=== PATIENT | female | born 1955 | race Caucasian/White ===

== ENCOUNTER 2023-02-28 17:32 | Inpatient (IN) ==
--- NOTE | 2023-02-28 18:04 | Emergency Department Note ---
Impression & Plan Pneumonia due to 2019 novel coronavirus, Acute hypoxemic respiratory failure, Acute dehydration ED Provider Note NAME: CHRISTIAN GARZA AGE: 67 SEX: F : 1955 ARRIVES VIA: Ambulance INFORMANT: Patient, ED PROVIDER(S): Gurdeep Lima MD CHIEF COMPLAINT: Shortness of breath MEDICAL DECISION MAKING: Patient presents due to concern for shortness of breath in setting of recent COVID diagnosis. Sepsis protocols were initiated patient was placed on BiPAP IV fluids ordered in addition to breathing treatment and steroids dexamethasone IV 6 mg. Blood work shows a white count of 13 with a hemoglobin of 10. Platelet count is unremarkable. Patient's kidney function is unremarkable but with prerenal azotemia. The patient did receive IV fluids. Patient was tolerating the BiPAP well. Hyponatremia at 135. Patient's other electrolytes unremarkable. Pro-Damion is not elevated will defer antibiotic treatment at this time. Ketones significant for dehydration. COVID-positive the rest of bio fire negative. I did speak with the on-call hospital service Dr. Win and the patient was admitted to the medicine service. Critical Care: I have personally spent 35 minutes of critical care time in direct management of this patient. This includes bedside care, interpretation of diagnostic studies, and testing, discussion with consultants, patient, and family members, and other require inpatient management activities. This 35 minutes is in excess of all separately billable procedures. Discussion w/ other healthcare providers: Dr. Win inpatient medicine service Prior /Outside records reviewed: None Differential diagnosis: Reactive airway disease, pneumonia, pneumothorax, COPD, CHF, ACS, pulmonary embolism, musculoskeletal, GERD as well as other pathologies were considered. Diagnostics, as interpreted by me: ECG: None Cardiac monitoring: An order was placed for continuous cardiac monitoring. The monitor shows a rate of 95 with sinus rhythm. Patient was placed on pulse oximetry Medical decision rules: None Imaging studies: I informally interpreted the patient's chest x-ray which does show multifocal pneumonia with formal report to follow. HPI: Patient presents due to concern for increasing work of breathing associated shortness of breath. The patient states that she tested positive for COVID and had symptoms beginning on the 18. The patient is visiting from [place] as her mother is currently at [facility], [place]. Patient denies any chest pains. The patient has had cough but it is nonproductive. No smoking history. The patient denies any leg swelling or calf pain. No abdominal pain nausea vomiting. PAST MEDICAL HISTORY: See Below PAST SURGICAL HISTORY: History of partial colectomy SOCIAL HISTORY: Retired HOME MEDICATIONS: See Below ALLERGIES: See Below VITALS: See Below PHYSICAL EXAMINATION: GENERAL: Ill in appearance nasal cannula mask in place EYE EXAM: Normal conjunctiva. PERRL, no anisocoria and EOM's grossly intact w/o pain. OROPHARYNX: Moist mucus membranes, grossly normal dentition. NECK: Supple, no nuchal rigidity, no adenopathy, non-tender. No signs of meningismus. FROM of the neck with good chin to chest and neck extension. No stridor. LUNGS: Coarse sounds throughout. Normal chest wall mechanics. HEART: NSR, no MRG. ABDOMEN: Abdomen soft, non-tender, no masses, no rebound or guarding. BACK: No CVA TTP. SKIN: No rashes and no bruising. UPPER EXTREMITIES: Upper extremities are grossly normal. LOWER EXTREMITIES: Grossly normal, no edema. NEURO EXAM: A&O x3, cranial nerves II-XII grossly intact, normal speech, moves all 4 extremities. Past Med/Surg History Medical History Anxiety Asthma Scoliosis Osteoporosis Social History Smoking Status: Never smoker Preferred Language: Italian Feels Safe at Home: Yes Allergies Allergies Allergy/AdvReac Type Severity Reaction Status Date / Time diazepam [From Valium] AdvReac Intermediate Dizziness Verified 02/28/23 19:48 hydrocodone [From Vicodin] AdvReac Intermediate Dizziness Verified 02/28/23 19:48 soy AdvReac Intermediate Gastrointestinal Verified 02/28/23 19:48 Upset Tetracyclines AdvReac Intermediate Dizziness Verified 02/28/23 19:48 Home Meds Home Medications Medication Instructions Recorded Confirmed alendronate 70 mg tablet 70 mg PO WK 02/28/23 02/28/23 ciclesonide 160 mcg/actuation 1 inh inhalation BID 02/28/23 02/28/23 aerosol inhaler (Alvesco) fluoxetine 40 mg capsule 40 mg PO BID 02/28/23 02/28/23 lorazepam 0.5 mg tablet 0.5 mg PO DAILY 02/28/23 02/28/23 nirmatrelvir 300 mg (150 mg 1 ea PO DIRECTED 02/28/23 02/28/23 x2)-ritonavir 100 mg tablet,dose pack (Paxlovid) risperidone 2 mg tablet 2 mg PO HS 02/28/23 02/28/23 Results & Data (ED) Vital Signs Vital Signs - 24 hr 02/28/23 17:42 02/28/23 17:42 02/28/23 17:42 Temperature 37.2 C Temperature Source Oral Pulse Rate Pulse Rate [Right Finger] 103 H Pulse Rhythm Pulse Rhythm [Right Finger] Regular Pulse Strength Pulse Strength [Right Finger] Normal Respiratory Rate 29 H Respiratory Effort / Characteristics SOB on Exertion SOB on Exertion Respiratory Depth Shallow Shallow Respiratory Pattern Tachypnea Tachypnea Blood Pressure Blood Pressure [Right Arm] 165/90 H Blood Pressure Mean Blood Pressure Mean [Right Arm] 115 Blood Pressure Position Blood Pressure Position [Right Arm] Semi-fowlers Pulse Oximetry 94 Oxygen Delivery Method Nasal Cannula Nasal Cannula Nasal Cannula Oxygen Flow Rate 2 2 2 Fraction of Inspired Oxygen Sepsis Recent Fever Within 48 Hours Sepsis New/Unexplained Change in Mental Status Sepsis Action Taken by Nursing 02/28/23 17:43 02/28/23 17:47 02/28/23 18:34 Temperature 37.2 C Temperature Source Oral Pulse Rate 99 H 103 H 90 Pulse Rate [Right Finger] Pulse Rhythm Regular Regular Pulse Rhythm [Right Finger] Pulse Strength Normal Pulse Strength [Right Finger] Respiratory Rate 29 H 21 Respiratory Effort / Characteristics SOB on Exertion Respiratory Depth Normal Respiratory Pattern Tachypnea Blood Pressure 165/90 H Blood Pressure [Right Arm] Blood Pressure Mean 115 Blood Pressure Mean [Right Arm] Blood Pressure Position Semi-fowlers Blood Pressure Position [Right Arm] Pulse Oximetry 95 92 Oxygen Delivery Method Nasal Cannula Nasal Cannula Oxygen Flow Rate 2 2 Fraction of Inspired Oxygen Sepsis Recent Fever Within 48 Hours Yes Sepsis New/Unexplained Change in Mental Status N/A Sepsis Action Taken by Nursing No Action Required 02/28/23 18:34 02/28/23 18:38 02/28/23 19:42 Temperature Temperature Source Pulse Rate 93 H Pulse Rate [Right Finger] 93 H 91 H Pulse Rhythm Pulse Rhythm [Right Finger] Regular Pulse Strength Pulse Strength [Right Finger] Normal Respiratory Rate 32 H 32 H 17 Respiratory Effort / Characteristics Spontaneous Spontaneous Non-Labored Spontaneous Respiratory Depth Normal Normal Respiratory Pattern Tachypnea Regular Blood Pressure Blood Pressure [Right Arm] 168/90 H Blood Pressure Mean Blood Pressure Mean [Right Arm] 116 Blood Pressure Position Blood Pressure Position [Right Arm] Pulse Oximetry 95 95 96 Oxygen Delivery Method BiPAP BiPAP Oxygen Flow Rate Fraction of Inspired Oxygen 25 25 Sepsis Recent Fever Within 48 Hours Sepsis New/Unexplained Change in Mental Status Sepsis Action Taken by Nursing 02/28/23 20:56 Temperature Temperature Source Pulse Rate Pulse Rate [Right Finger] 97 H Pulse Rhythm Pulse Rhythm [Right Finger] Regular Pulse Strength Pulse Strength [Right Finger] Normal Respiratory Rate 19 Respiratory Effort / Characteristics SOB on Exertion Respiratory Depth Normal Respiratory Pattern Regular Blood Pressure Blood Pressure [Right Arm] 156/89 H Blood Pressure Mean Blood Pressure Mean [Right Arm] 111 Blood Pressure Position Blood Pressure Position [Right Arm] Pulse Oximetry 92 Oxygen Delivery Method BiPAP Oxygen Flow Rate Fraction of Inspired Oxygen Sepsis Recent Fever Within 48 Hours Sepsis New/Unexplained Change in Mental Status Sepsis Action Taken by [facility] Medications Current Medication List: was personally reviewed by me Laboratory Data Attestation: I reviewed the patient's lab results. 02/28/23 18:20 02/28/23 18:20 Lab Results 02/28/23 02/28/23 Range/Units 18:20 18:30 WBC 13.31 H (4.8-10.8) K/ul RBC 3.80 L (4.20-5.40) M/uL Hgb 10.0 L (12.0-16.0) g/dl Hct 30.3 L (37.0-47.0) % MCV 79.7 L (80.0-100.0) fL MCH 26.3 (25.0-34.0) pg MCHC 33.0 (32.0-36.0) g/dL RDW Std Deviation 42.2 (36.4-46.3) fL RDW Coeff of Rogelio 14.5 (11.5-14.5) % Plt Count 352 (130-400) K/uL MPV 9.2 L (9.4-12.4) fL Immature Gran % (Auto) 1.4 % Neut % (Auto) 81.5 % Lymph % (Auto) 8.4 % [place] % (Auto) 8.2 % Eos % (Auto) 0.3 % Baso % (Auto) 0.2 % Neut # (Auto) 10.85 H (1.40-6.50) K/uL Lymph # (Auto) 1.12 L (1.20-3.40) K/uL [place] # (Auto) 1.09 H (0.11-0.59) K/uL Eos # (Auto) 0.04 (0.00-0.50) K/uL Baso # (Auto) 0.03 (0.00-0.20) K/uL Immature Gran # (Auto) 0.18 (0.01-0.20) K/uL Sodium 135 L (136-145) mmol/L Potassium 3.8 (3.5-5.1) mmol/L Chloride 99 (98-107) mmol/L Carbon Dioxide 27 (21-32) mmol/L Anion Gap 9 (3-11) BUN 18 (6-23) mg/dl Creatinine 0.64 (0.6-1.2) mg/dl Est Cr Clr Drug Dosing 68.5 ml/min Est GFR ( Amer) 107.8 ml/min Est GFR (Non-Af Amer) 93.0 ml/min BUN/Creatinine Ratio 28.1 H (10-20) Glucose 106 H (70-99(Fasting)) mg/dl Lactate 1.4 (0.4-2.0) mmol/L Calcium 8.7 (8.6-10.3) mg/dl Magnesium 2.0 (1.7-2.4) mg/dl Total Bilirubin 0.5 (0.2-1.0) mg/dl AST 33 (13-39) U/L ALT 38 (7-52) U/L Alkaline Phosphatase 53 (34-104) U/L Troponin I High Sens 7.8 (0-14) pg/ml Total Protein 7.1 (6.0-8.3) gm/dl Albumin 3.4 (3.4-5.0) gm/dl Globulin 3.7 (2.5-4.0) gm/dl Albumin/Globulin Ratio 0.9 (0.9-2) Procalcitonin 0.21 (0-0.5) ng/ml Adenovirus (PCR) Not Detected (NotDetected) B. pertussis DNA (PCR) Not Detected (NotDetected) B.parapertussis DNA PCR Not Detected (NotDetected) C. pneumoniae DNA (PCR) Not Detected (NotDetected) Coronavirus OC43 (PCR) Not Detected (NotDetected) Coronavirus HKU1 (PCR) Not Detected (NotDetected) Coronavirus 229E (PCR) Not Detected (NotDetected) SARS-CoV-2 (PCR) DETECTED A* (NotDetected) Coronavirus NL63 (PCR) Not Detected (NotDetected) Human Metapneumovir PCR Not Detected (NotDetected) Influenza Type A (PCR) Not Detected (NotDetected) Influenza Type B (PCR) Not Detected (NotDetected) M. pneumoniae (PCR) Not Detected (NotDetected) Parainfluenza 1 (PCR) Not Detected (NotDetected) Parainfluenza 2 (PCR) Not Detected (NotDetected) Parainfluenza 3 (PCR) Not Detected (NotDetected) Parainfluenza 4 (PCR) Not Detected (NotDetected) RSV (PCR) Not Detected (NotDetected) Entero/Rhino (PCR) Not Detected (NotDetected) Administered Medications Azithromycin 500 mg/ Dextrose 255 mls @ 127.5 mls/hr IV Q24H ALFREDO Stop: 03/07/23 22:59 Last Admin: 02/28/23 23:48 Dose: 127.5 mls/hr Documented By: DLLeela Discontinued Medications Albuterol (Albut/Ipratrop 3mg/0.5mg Neb 3 Ml Vial) 6 ml NEB NOW STA; Protocol Stop: 02/28/23 18:19 Last Admin: 02/28/23 18:34 Dose: 6 ml Documented By: NUNU Dexamethasone (Dexamethasone Sod Inj 4 Mg/Ml Vial) 6 mg IV NOW STA Stop: 02/28/23 18:19 Last Admin: 02/28/23 18:51 Dose: 6 mg Documented By: ADELSO Sodium Chloride (Nss) 500 mls @ 999 mls/hr IV .Q31M ALFREDO Stop: 02/28/23 19:00 Last Infusion: 02/28/23 20:15 Dose: Infused Documented By: Admin: 02/28/23 19:41 Dose: 999 mls/hr Documented By: ADELSO Sodium Chloride (Nss) 1,000 mls @ 999 mls/hr IV .Q1H1M ALFREDO Stop: 02/28/23 19:30 Last Infusion: 02/28/23 19:55 Dose: Infused Documented By: Admin: 02/28/23 18:52 Dose: 999 mls/hr Documented By: ADELSO Imaging Data Radiologist's Impression: Chest X-Ray 02/28/23 18:18 XR chest 1V portable CLINICAL HISTORY: Sepsis. COMPARISON STUDY: No previous studies for comparison. FINDINGS: S-shaped scoliosis of the thoracolumbar spine is incidentally noted. There is no pneumothorax. Small bilateral pleural effusions are present. Multifocal bilateral airspace opacities are present. There is interstitial thickening. Borderline cardiomegaly. IMPRESSION: 1. Multifocal airspace opacities and interstitial thickening. The findings could reflect multifocal pneumonia or pulmonary edema. Radiographic follow-up to ensure resolution is recommended. 2. Small bilateral pleural effusions. ACT 112: Negative or not required by law. Electronically signed by: Markell Kimbrough M.D. 02/28/2023 7:28 PM Discharge Plan Visit Data Chief Complaint: Shortness of Breath/Dyspnea Stated Complaint: SOB ED Provider: Gurdeep Lima Discharge Problem: Pneumonia due to 2019 novel coronavirus, Acute hypoxemic respiratory failure, Acute dehydration Patient Disposition: Admitted As Inpatient Discharge Instructions Interventions: ED Discharge Assessment Last Done: 02/28/23 22:21
[2023-02-28] MEDS ORDERED: ALBUT/IPRATROP 3MG/0.5MG NEB 3 ML VIAL NEB STA (18:18)
[2023-02-28] MEDS ORDERED: DEXAMETHASONE SOD INJ 4 MG/ML VIAL IV STA (18:18)
[2023-02-28] MEDS ORDERED: SODIUM CHLORIDE 0.9% 500 ML IV SCH (18:30)
[2023-02-28] MEDS ORDERED: SODIUM CHLORIDE 0.9% 1,000 ML IV SCH (18:30)
[2023-02-28 18:43] LABS: Basophils # (auto) 0.03 K/uL (0.00-0.20); Basophils % (auto) 0.2 %; Eosinophils # (auto) 0.04 K/uL (0.00-0.50); Eosinophils % (auto) 0.3 %; Hematocrit (blood only) 30.3 % (37.0-47.0); Immature Granulocytes # (auto) 0.18 K/uL (0.01-0.20); Immature Granulocytes % (auto) 1.4 %; Lymphocytes # (auto) 1.12 K/uL (1.20-3.40); Lymphocytes % (auto) 8.4 %; Mean Corpuscular Hemoglobin 26.3 pg (25.0-34.0); Mean Corpuscular Volume 79.7 fL (80.0-100.0); Mean Platelet Volume 9.2 fL (9.4-12.4); Monocytes # (auto) 1.09 K/uL (0.11-0.59); Monocytes % (auto) 8.2 %; Neutrophils # (auto) 10.85 K/uL (1.40-6.50); Neutrophils % (auto) 81.5 %; Platelet Count 352 K/uL (130-400); RDW Coefficient of Variation 14.5 % (11.5-14.5); RDW Standard Deviation 42.2 fL (36.4-46.3); White Blood Count 13.31 K/ul (4.8-10.8)
[2023-02-28 19:01] LABS: Albumin Globulin Ratio 0.9 (0.9-2); Albumin Level 3.4 gm/dl (3.4-5.0); BUN Creatinine Ratio 28.1 (10-20); Bilirubin,Total 0.5 mg/dl (0.2-1.0); Calcium 8.7 mg/dl (8.6-10.3); Creatinine Clr Calc Pharmacy 68.5 ml/min; Est GFR (African American) 107.8 ml/min; Globulin 3.7 gm/dl (2.5-4.0); Potassium 3.8 mmol/L (3.5-5.1); Total Protein 7.1 gm/dl (6.0-8.3)
[2023-02-28 19:07] LABS: Troponin I High Sensitivity 7.8 pg/ml (0-14)
[2023-02-28 19:28] LABS: Adenovirus PCR Not Detected (NotDetected); Bordetella parapertussis PCR Not Detected (NotDetected); Bordetella pertussis PCR Not Detected (NotDetected); Chlamydia pneumoniae PCR Not Detected (NotDetected); Coronavirus 229E PCR Not Detected (NotDetected); Coronavirus HKU1 PCR Not Detected (NotDetected); Coronavirus NL63 PCR Not Detected (NotDetected); Coronavirus OC43PCR Not Detected (NotDetected); Human Metapneumovirus PCR Not Detected (NotDetected); Influenza A PCR Not Detected (NotDetected); Influenza B PCR Not Detected (NotDetected); Mycoplasma pneumoniae PCR Not Detected (NotDetected); Parainfluenza Virus 1 PCR Not Detected (NotDetected); Parainfluenza Virus 2 PCR Not Detected (NotDetected); Parainfluenza Virus 3 PCR Not Detected (NotDetected); Parainfluenza Virus 4 PCR Not Detected (NotDetected); Respiratory Syncytial VirusPCR Not Detected (NotDetected); Rhinovirus/Enterovirus PCR Not Detected (NotDetected)
[2023-02-28 19:29] LABS: Coronavirus CoV-2 (COVID19)PCR DETECTED (NotDetected)
--- NOTE | 2023-02-28 19:29 | XRay Report ---
XR chest 1V portable CLINICAL HISTORY: Sepsis. COMPARISON STUDY: No previous studies for comparison. FINDINGS: S-shaped scoliosis of the thoracolumbar spine is incidentally noted. There is no pneumothor ax. Small bilateral pleural effusions are present. Multifocal bilateral airspace opacities are presen t. There is interstitial thickening. Borderline cardiomegaly. IMPRESSION: 1. Multifocal airspace opacities and interstitial thickening. The findings could reflect multifocal p neumonia or pulmonary edema. Radiographic follow-up to ensure resolution is recommended. 2. Small bilateral pleural effusions. ACT 112: Negative or not required by law. Electronically signed by: Markell Kimbrough M.D. 02/28/2023 7:28 PM
[2023-02-28 20:31] LABS: Appearance Urine Clear (Clear); Bacteria Urine Automated Negative (Negative); Bilirubin Urine Negative (Negative); Blood Urine Negative (Negative); Color Urine Yellow; Glucose Urine UA Negative (Negative); Ketones Urine Trace (Negative); Leukocyte Esterase Urine Negative (Negative); Nitrite Urine Negative (Negative); Protein Urine 1+ (Negative); Specific Gravity Urine 1.021 (1.000-1.030); Urobilinogen Urine Negative (Negative)
--- NOTE | 2023-02-28 21:00 | History & Physical Report ---
Date of Service February 28, 2023 Assessment & Plan (1) COVID: Plan: GUZMAN and cough started 02/23; COVID+ on 02/24; started on 5-day course of Paxlovid on 02/24 Patient had acute worsening of fever and cough starting 02/26 before admission on 02/28 At time of admission, she is on BiPAP with SpO2 92% Isolation precautions Leukocytosis at 13.31 with a neutrophil predominance CXR revealed multifocal airspace opacities which could reflect multifocal pneumonia or pulmonary edema Will cover with azithromycin 500 mg IV daily Procalcitonin WNL Dexamethasone 6 mg IV QAM DuoNeb QIDR Acetaminophen as needed for pain and fever A.m. CBC, BMP (2) Anxiety: Plan: Continue fluoxetine, risperidone, lorazepam (3) Osteoporosis: Plan: Hold alendronate (4) Asthma: Plan: Hold Alvesco (5) Scoliosis: Plan: Chronic; noted Plan Disposition: Admit to PCU telemetry Full code Regular diet VTE PPx: SCDs, Lovenox 40mg SQ q24h History of Present Illness Chief Complaint: Shortness of breath/dyspnea Primary Care Provider: NO PCP Celia is a 67-year-old female with PMH of osteoporosis, scoliosis, and asthma. Patient came in for worsening GUZMAN since 02/23; she tested positive for COVID on 02/24. She has been on Paxlovid since 02/24, and has 1 more dose to take on 02/28 at time of admission. Patient reports that she has had low-grade fevers starting 2 days ago, with the last being the morning of 02/28; she reports it was at 100 F. She did not take anything for the fevers. She is not on oxygen at baseline. She does not use a CPAP at night. Patient reports that she has received COVID shots x 2 as well as her booster this year; she is also had her flu shot and RSV shots this year. She reports that she does not normally have problems with aspiration. She took all of her regular morning medications, and reports no recent medication changes. In terms of sick contacts, she was recently staying with her 95-year-old mother at [facility], who is also sick. She noted that she would want her sister, Анна Alexis, to make medical decisions for her if she were unable to. Patient is at 92% SpO2 on BiPAP at time of admission. ED course: NSS 1500 mL IV Decadron 6 mg IV DuoNeb 6 mL ROS: Patient endorses fever, dry cough x 2 days, loose bowels (no diarrhea), back pain, and dry mouth Patient denies dizziness, lightheadedness, NICHOLAS, chest pain, abdominal pain, N/V, burning with urination, dysuria, or numbness/tingling down the arms/legs. Allergies Allergy/AdvReac Type Severity Reaction Status Date / Time diazepam [From Valium] AdvReac Intermediate Dizziness Verified 02/28/23 19:48 hydrocodone [From Vicodin] AdvReac Intermediate Dizziness Verified 02/28/23 19:48 soy AdvReac Intermediate Gastrointestinal Verified 02/28/23 19:48 Upset Tetracyclines AdvReac Intermediate Dizziness Verified 02/28/23 19:48 Home Medications Medication Instructions Recorded Confirmed Type alendronate 70 mg tablet 70 mg PO WK 02/28/23 02/28/23 History ciclesonide 160 mcg/actuation 1 inh inhalation BID 02/28/23 02/28/23 History aerosol inhaler (Alvesco) fluoxetine 40 mg capsule 40 mg PO BID 02/28/23 02/28/23 History lorazepam 0.5 mg tablet 0.5 mg PO DAILY 02/28/23 02/28/23 History nirmatrelvir 300 mg (150 mg 1 ea PO DIRECTED 02/28/23 02/28/23 History x2)-ritonavir 100 mg tablet,dose pack (Paxlovid) risperidone 2 mg tablet 2 mg PO HS 02/28/23 02/28/23 History Past Med/Surg History Medical History Anxiety Asthma Scoliosis Osteoporosis Social History Smoking Status: Never smoker Second Hand Exposure: No; Do You Dip or Chew Tobacco: No; Tobacco Cessation Education Requested by Patient: No Hx Alcohol Use: No Hx Substance Use: No Preferred Language: Serbian Communication Ability: Effective Coal Miner Required: No Beliefs That Will Affect Care: None Current Living Situation: Alone Other Information That Helps Us Care for You: No Feels Safe at Home: Yes Safety Concerns: Feels Safe At This Time Assistive Devices: Glasses Review of Systems Review of Systems: See HPI above Physical Exam Physical Exam: General: Acute respiratory distress; 92% on BiPAP; frail; non-toxic appearing; cooperative HEENT: normocephalic, atraumatic; no scleral icterus; PERRLA w/ EOMs intact; dry mucus membrane; vision and hearing intact Neck: supple; no JVD; no lymphadenopathy; trachea midline Skin: warm, dry without signs of tenting; no cyanosis; no rashes, bruising, lesions, or erythema noted CV: chest wall NTP; RRR; S1/S2 normal; no murmurs/rubs/gallops; pulses intact and symmetric at radial, DP, and PT Lungs: Patient struggles with breathing on BiPAP; symmetrical chest wall expansion; inspiratory/expiratory wheezes across all lung bell bilaterally ABD: Soft, NTP; BS present; no rebound/guarding MSK: Scoliosis; no tics or fasciculations; no edema noted in the LEs b/l, nonerythematous Neuro: A&Ox3; fluent speech; no focal deficits; sensation grossly intact in the LEs B/L Results & Data Results & Data Vital Signs (Past 12 Hours) Vital Signs Temp Pulse Pulse Resp BP BP Pulse Ox 02/28/23 19:42 91 H 17 168/90 H 96 02/28/23 18:38 93 H 32 H 95 02/28/23 18:34 93 H 32 H 95 02/28/23 18:34 90 21 92 02/28/23 17:47 37.2 C 103 H 29 H 165/90 H 95 02/28/23 17:43 99 H 02/28/23 17:42 37.2 C 103 H 29 H 165/90 H 94 02/28/23 17:42 02/28/23 17:42 O2 Del Method O2 Flow Rate FiO2 02/28/23 19:42 BiPAP 02/28/23 18:38 BiPAP 25 02/28/23 18:34 25 02/28/23 18:34 Nasal Cannula 2 02/28/23 17:47 Nasal Cannula 2 02/28/23 17:43 02/28/23 17:42 Nasal Cannula 2 02/28/23 17:42 Nasal Cannula 2 02/28/23 17:42 Nasal Cannula 2 Laboratory Results Abnormal lab results 02/28/23 02/28/23 02/28/23 Range/Units 18:20 18:30 Unknown WBC 13.31 H (4.8-10.8) K/ul RBC 3.80 L (4.20-5.40) M/uL Hgb 10.0 L (12.0-16.0) g/dl Hct 30.3 L (37.0-47.0) % MCV 79.7 L (80.0-100.0) fL MPV 9.2 L (9.4-12.4) fL Neut # (Auto) 10.85 H (1.40-6.50) K/uL Lymph # (Auto) 1.12 L (1.20-3.40) K/uL [place] # (Auto) 1.09 H (0.11-0.59) K/uL Sodium 135 L (136-145) mmol/L BUN/Creatinine Ratio 28.1 H (10-20) Glucose 106 H (70-99(Fasting)) mg/dl Urine Protein 1+ H (Negative) Urine Ketones Trace H (Negative) Urine RBC (Auto) 5-10 H (0-4) /hpf U Epithel Cells (Auto) 10-20 H (0-5) /lpf SARS-CoV-2 (PCR) DETECTED A* (NotDetected) Diagnostic Findings Chest X-Ray 02/28/23 18:18 XR chest 1V portable CLINICAL HISTORY: Sepsis. COMPARISON STUDY: No previous studies for comparison. FINDINGS: S-shaped scoliosis of the thoracolumbar spine is incidentally noted. There is no pneumothorax. Small bilateral pleural effusions are present. Multifocal bilateral airspace opacities are present. There is interstitial thickening. Borderline cardiomegaly. IMPRESSION: 1. Multifocal airspace opacities and interstitial thickening. The findings could reflect multifocal pneumonia or pulmonary edema. Radiographic follow-up to ensure resolution is recommended. 2. Small bilateral pleural effusions. ACT 112: Negative or not required by law. Electronically signed by: Markell Kimbrough M.D. 02/28/2023 7:28 PM Code Status & VTE Plan Code Status Full code VTE Prophylaxis Plan VTE Prophylaxis will be ordered: Yes Supervising Physician Co-Signing Physician Notes Attending addendum: I have physically seen this patient, have supervised the RL's activities, and agree with the H&P unless as otherwise noted. Assessment and Plan: COVID-19 infection with hypoxia/asthma- Complete 5-day course of Paxlovid that began on 02/24 Worsening of symptoms on 02/26 suggest a secondary bacterial infection Azithromycin 500 mg IV daily Guaifenesin extended release 12 mg p.o. twice daily Dexamethasone 6 mg IV daily Duonebs every 4 hours while awake and every 2 hours when necessary. Acetaminophen 650 mg by mouth every 6 hours as needed for mild pain or fever continue Alvesco Anxiety- Continue fluoxetine, risperidone and lorazepam PG Care Time/CCT Total # of Minutes Spent Total Time Spent with Patient: Total time spent is greater than 50% in coordination of care (as documented) at patient's floor/unit and/or counseling patient: [place] [address] INT INP/OBS CARE 2/55MIN Patient Type New Medical Decision Making Moderate Complexity Diagnoses COVID U07.1 Anxiety F41.9 Osteoporosis M81.0 Asthma J45.909 Scoliosis M41.9
[2023-02-28] MEDS ORDERED: NIRMATRELVIR RITONAVIR PO SCH (23:16)
[2023-02-28] MEDS ORDERED: ENOXAPARIN INJ 40 MG/0.4 ML SYR SQ SCH (23:16)
[2023-02-28] MEDS: AZITHROMYCIN 500 MG in DEXTROSE 5% 250 ML IV SCH (23:48)
[2023-03-01] MEDS: ACETAMINOPHEN 325 MG TAB PO PRN ×2 (03:44→22:23)
[2023-03-01] MEDS ORDERED: Nursing to Pharmacy Communication SCH (06:45)
[2023-03-01] MEDS: ALBUT/IPRATROP 3MG/0.5MG NEB 3 ML VIAL NEB SCH ×4 (07:27→19:24)
--- NOTE | 2023-03-01 07:30 | Hospitalist Progress Note ---
Date of Service March 01, 2023 Assessment & Plan (1) COVID: Plan: Patient traveled from [place] to visit her mother who is near and [facility] GUZMAN and cough started 02/23; COVID+ on 02/24; started on 5-day course of Paxlovid on 02/24 completed last dose in the hospital on 03/01 Patient had acute worsening of fever and cough starting 02/26 before admission on 02/28 At time of admission, she initially was on BiPAP has been titrated to cannula oxygen 4 L Airborne Isolation precautions CXR revealed multifocal airspace opacities which could reflect multifocal pneumonia or pulmonary edema Will cover with azithromycin 500 mg IV daily Dexamethasone 6 mg IV QAM DuoNeb QIDR Acetaminophen as needed for pain and fever (2) Anxiety: Plan: Continue fluoxetine, risperidone, lorazepam (3) Osteoporosis: Plan: Hold alendronate (4) Asthma: Plan: Hold Alvesco (5) Scoliosis: Plan: Chronic; noted Plan Full code Regular diet VTE PPx: SCDs, Lovenox 40mg SQ q24h Subjective Patient feels mildly short of breath. She is still having loose bowel movements. She has no alteration in taste or smell. Physical Exam Physical Exam: Patient kyphoscoliosis including forward positioning of head. Card exam is regular lungs have coarse crackles in all lung bell no overt loss of breath sounds wheezes or crackles Results & Data Results & Data Vital Signs (Past 12 Hours) Vital Signs Temp Pulse Pulse Resp BP Pulse Ox O2 Del Method 03/01/23 03:32 84 30 H 96 02/28/23 23:00 91 H 02/28/23 23:00 99.9 F H 92 H 22 154/78 H 91 Nasal Cannula, BiPAP 02/28/23 22:40 Nasal Cannula 02/28/23 22:40 99.5 F 92 H 154/78 H 92 Nasal Cannula 02/28/23 22:09 90 18 165/87 H 94 BiPAP 02/28/23 21:39 97 H 02/28/23 20:56 97 H 19 156/89 H 92 BiPAP 02/28/23 19:42 91 H 17 168/90 H 96 BiPAP O2 Flow Rate FiO2 03/01/23 03:32 25 02/28/23 23:00 02/28/23 23:00 02/28/23 22:40 4 02/28/23 22:40 4 02/28/23 22:09 02/28/23 21:39 02/28/23 20:56 02/28/23 19:42 Laboratory Results Reviewed CBC reviewed chemistry PG Care Time/CCT Total # of Minutes Spent Total Time Spent with Patient: Total time spent is greater than 50% in coordination of care (as documented) at patient's floor/unit and/or counseling patient: Coding Level of Care Code 11663 SUB INP/OBS CARE 2/35MIN Diagnoses COVID U07.1 Anxiety F41.9 Osteoporosis M81.0 Asthma J45.909 Scoliosis M41.9
[2023-03-01 07:47] LABS: Basophils # (auto) 0.02 K/uL (0.00-0.20); Basophils % (auto) 0.2 %; Hematocrit (blood only) 31.5 % (37.0-47.0); Hemoglobin 10.4 g/dl (12.0-16.0); Immature Granulocytes # (auto) 0.22 K/uL (0.01-0.20); Immature Granulocytes % (auto) 1.8 %; Lymphocytes # (auto) 0.72 K/uL (1.20-3.40); Lymphocytes % (auto) 5.9 %; Mean Corpuscular Hemoglobin 25.9 pg (25.0-34.0); Mean Corpuscular Volume 78.4 fL (80.0-100.0); Mean Platelet Volume 9.3 fL (9.4-12.4); Monocytes # (auto) 0.33 K/uL (0.11-0.59); Monocytes % (auto) 2.7 %; Neutrophils # (auto) 10.88 K/uL (1.40-6.50); Neutrophils % (auto) 89.4 %; Platelet Count 379 K/uL (130-400); RDW Coefficient of Variation 14.6 % (11.5-14.5); RDW Standard Deviation 41.6 fL (36.4-46.3); Red Blood Count 4.02 M/uL (4.20-5.40); White Blood Count 12.17 K/ul (4.8-10.8)
[2023-03-01 08:01] LABS: BUN Creatinine Ratio 21.7 (10-20); Calcium 8.1 mg/dl (8.6-10.3); Creatinine Clr Calc Pharmacy 72.8 ml/min; Est GFR (African American) 110.1 ml/min
[2023-03-01] MEDS ORDERED: DEXAMETHASONE SOD INJ 4 MG/ML VIAL IV SCH (09:00)
[2023-03-01] MEDS: LORazepam 0.5 MG TAB PO SCH (09:51)
[2023-03-01] MEDS: FLUoxetine HCL 20 MG CAP PO SCH ×2 (09:52→20:02)
[2023-03-01] MEDS: dexAMETHasone 6 MG in SYRINGE 0 ML IV SCH (09:53)
[2023-03-01] MEDS: ENOXAPARIN INJ 40 MG/0.4 ML SYR SQ SCH (09:58)
[2023-03-01] MEDS: risperiDONE 2 MG TABLET PO SCH (20:02)
[2023-03-01] MEDS: AZITHROMYCIN 500 MG in DEXTROSE 5% 250 ML IV SCH (22:24)
--- NOTE | 2023-03-02 06:09 | Electrocardiogram Report ---
Test Reason : Blood Pressure : / mmHG Vent. Rate : 096 BPM Atrial Rate : 096 BPM P-R Int : 108 ms QRS Dur : 076 ms QT Int : 352 ms P-R-T Axes : 023 078 051 degrees QTc Int : 444 ms Sinus rhythm with short AL Otherwise normal ECG No previous ECGs available Confirmed by Dwayne Neff ([id number]) on 03/02/2023 6:08:45 AM Referred By: REFERRED SELF Confirmed By:Dwayne Neff
[2023-03-02 07:20] LABS: Basophils # (auto) 0.02 K/uL (0.00-0.20); Basophils % (auto) 0.1 %; Hematocrit (blood only) 28.8 % (37.0-47.0); Hemoglobin 9.8 g/dl (12.0-16.0); Immature Granulocytes # (auto) 0.34 K/uL (0.01-0.20); Lymphocytes # (auto) 0.99 K/uL (1.20-3.40); Lymphocytes % (auto) 5.9 %; Mean Corpuscular Hemoglobin 26.1 pg (25.0-34.0); Mean Corpuscular Volume 76.6 fL (80.0-100.0); Mean Platelet Volume 9.4 fL (9.4-12.4); Monocytes # (auto) 0.85 K/uL (0.11-0.59); Neutrophils # (auto) 14.64 K/uL (1.40-6.50); Platelet Count 453 K/uL (130-400); RDW Coefficient of Variation 14.3 % (11.5-14.5); RDW Standard Deviation 39.8 fL (36.4-46.3); Red Blood Count 3.76 M/uL (4.20-5.40); White Blood Count 16.84 K/ul (4.8-10.8)
[2023-03-02 07:42] LABS: BUN Creatinine Ratio 27.4 (10-20); C Reactive Protein 9.23 mg/dl (0-0.5); Calcium 7.8 mg/dl (8.6-10.3); Creatinine Clr Calc Pharmacy 70.2 ml/min; Est GFR (African American) 108.9 ml/min; Potassium 3.6 mmol/L (3.5-5.1)
[2023-03-02] MEDS: ALBUT/IPRATROP 3MG/0.5MG NEB 3 ML VIAL NEB SCH ×4 (07:49→19:47)
[2023-03-02] MEDS: ENOXAPARIN INJ 40 MG/0.4 ML SYR SQ SCH (08:41)
[2023-03-02] MEDS: FLUoxetine HCL 20 MG CAP PO SCH (08:42)
[2023-03-02] MEDS: LORazepam 0.5 MG TAB PO SCH (09:44)
[2023-03-02] MEDS: dexAMETHasone 6 MG in SYRINGE 0 ML IV SCH (09:44)
--- NOTE | 2023-03-02 14:02 | Hospitalist Progress Note ---
Date of Service March 02, 2023 Assessment & Plan (1) COVID: Plan: Acute hypoxic respiratory failure due to COVID-19 pneumonia present on admission GUZMAN and cough started 02/23; COVID+ on 02/24; started on 5-day course of Paxlovid on 02/24 Patient had acute worsening of fever and cough starting 02/26 before admission on 02/28 Initially required respiratory support with BiPAP, improved and now on 2-4 L nasal cannula. Was 87% on room air today -continue dexamethasone but change to 6 mg po daily - complete 10d or stop when no longer hypoxic -continue duonebs. states history of asthma. not currently wheezing. -WBC remains elevated currently related to steroid effect Consider superimposed bacterial pneumonia. Procal was 0.21 on admission. CXR revealed multifocal airspace opacities which could reflect multifocal pneumonia or pulmonary edema -Will stop azithromycin since she has already had greater than 3 x 500 mg doses -Will recheck procalcitonin, if elevated will broaden CAP overage past azithromycin /changed to ceftriaxone, otherwise stop antibiotic (2) Anxiety: Plan: Continue fluoxetine, risperidone, lorazepam (3) Osteoporosis: Plan: Hold alendronate (4) Asthma: Plan: Hold Alvesco (5) Scoliosis: Plan: Chronic; noted (6) Microcytic anemia: Plan: -was present on admission -Hct stable, no e/o bleeding -check iron panel -follow up in primary care Plan VTE PPx: SCDs, Lovenox 40mg SQ q24h She is visiting from [facility]. Her mother is also hospitalized here with COVID. (Hanh Maloney) Admission and Anticipated Discharge Date Admission Date: February 28, 2023 Subjective still with cough and some shortness of breath, fatigue Physical Exam 2 Physical Exam: PHYSICAL EXAMINATION Last 24h vital signs reviewed, see documentation in flowsheet General: comfortable appearing, no distress HEENT: Normocephalic, atraumatic, pupils round and equal, sclerae anicteric, no conjunctival injection, moist mucus membranes Lungs: Slightly increased respiratory effort. some crackles left anterior and bibasilar. Not wheezing good air movement Heart: Regular rate and rhythm, no murmurs. No JVD Abdomen: Soft, nontender, nondistended. Bowel sounds present. Extremities: Warm, dry, well-perfused. No extremity edema. Neuro: Alert and oriented x 4, face symmetric, moves 4 extremities well Psych: Normal affect and behavior Results & Data Results & Data Vital Signs (Past 12 Hours) Vital Signs Temp Pulse Pulse Resp BP Pulse Ox O2 Del Method 03/02/23 12:07 Nasal Cannula 03/02/23 11:32 36.7 C 99 H 20 136/74 87 L Room Air 03/02/23 11:15 92 H 20 90 Nasal Cannula 03/02/23 07:58 36.8 C 97 H 20 151/98 H 93 Nasal Cannula 03/02/23 07:52 86 20 91 Nasal Cannula 03/02/23 03:00 36.3 C L 83 20 130/82 95 Oxymask 03/02/23 02:38 90 29 H 94 03/02/23 02:00 94 H O2 Flow Rate FiO2 03/02/23 12:07 4 03/02/23 11:32 03/02/23 11:15 2 03/02/23 07:58 03/02/23 07:52 2 03/02/23 03:00 03/02/23 02:38 25 03/02/23 02:00 Laboratory Results 03/02/23 06:31 03/02/23 06:31 PG Care Time/CCT Total # of Minutes Spent Total Time Spent with Patient: Total time spent is greater than 50% in coordination of care (as documented) at patient's floor/unit and/or counseling patient: Coding Level of Care Code 95779 SUB INP/OBS CARE 2/35MIN Diagnoses COVID U07.1 Anxiety F41.9 Osteoporosis M81.0 Asthma J45.909 Scoliosis M41.9 Microcytic anemia D50.9
[2023-03-02] MEDS: risperiDONE 2 MG TABLET PO SCH (20:53)
[2023-03-03] MEDS: FLUoxetine HCL 20 MG CAP PO SCH ×2 (00:27→08:57)
[2023-03-03] MEDS ORDERED: Nursing to Pharmacy Communication SCH (00:30)
[2023-03-03] MEDS: ALBUT/IPRATROP 3MG/0.5MG NEB 3 ML VIAL NEB SCH ×4 (07:23→19:39)
[2023-03-03 08:51] LABS: Basophils # (auto) 0.01 K/uL (0.00-0.20); Basophils % (auto) 0.1 %; Hematocrit (blood only) 29.8 % (37.0-47.0); Hemoglobin 10.1 g/dl (12.0-16.0); Immature Granulocytes # (auto) 0.62 K/uL (0.01-0.20); Immature Granulocytes % (auto) 4.1 %; Lymphocytes # (auto) 0.96 K/uL (1.20-3.40); Lymphocytes % (auto) 6.4 %; Mean Corpuscular Hemoglobin 26.2 pg (25.0-34.0); Mean Corpuscular Hgb Conc 33.9 g/dL (32.0-36.0); Mean Corpuscular Volume 77.2 fL (80.0-100.0); Mean Platelet Volume 9.2 fL (9.4-12.4); Monocytes # (auto) 0.56 K/uL (0.11-0.59); Monocytes % (auto) 3.7 %; Neutrophils # (auto) 12.85 K/uL (1.40-6.50); Neutrophils % (auto) 85.7 %; Platelet Count 484 K/uL (130-400); RDW Coefficient of Variation 14.7 % (11.5-14.5); RDW Standard Deviation 41.1 fL (36.4-46.3); Red Blood Count 3.86 M/uL (4.20-5.40)
[2023-03-03] MEDS: dexAMETHasone 4 MG TAB PO SCH (08:57)
[2023-03-03] MEDS: ENOXAPARIN INJ 40 MG/0.4 ML SYR SQ SCH (08:57)
[2023-03-03 09:07] LABS: BUN Creatinine Ratio 34.5 (10-20); Creatinine Clr Calc Pharmacy 71.8 ml/min; Est GFR (African American) 111.3 ml/min; Est GFR (Non-African American) 96.1 ml/min; Potassium 3.5 mmol/L (3.5-5.1)
[2023-03-03 09:28] LABS: Ferritin 77.3 ng/ml (8-388)
[2023-03-03] MEDS: LORazepam 0.5 MG TAB PO SCH (10:03)
--- NOTE | 2023-03-03 15:49 | Hospitalist Progress Note ---
Date of Service March 03, 2023 Assessment & Plan (1) COVID: Plan: Acute hypoxic respiratory failure due to COVID-19 pneumonia present on admission GUZMAN and cough started 02/23; COVID+ on 02/24; started on 5-day course of Paxlovid on 02/24 Patient had acute worsening of fever and cough starting 02/26 before admission on 02/28 Initially required respiratory support with BiPAP, improved and now on 2-4 L nasal cannula. -continue dexamethasone but change to 6 mg po daily - complete 10d or stop when no longer hypoxic -continue duonebs. states history of asthma. not currently wheezing. -WBC remains elevated currently related to steroid effect Consider superimposed bacterial pneumonia. Procal was 0.21 on admission. CXR revealed multifocal airspace opacities which could reflect multifocal pneumonia or pulmonary edema -Will stop azithromycin since she has already had greater than 3 x 500 mg doses, repeat procalcitonin 03/02 remained negative (2) Anxiety: Plan: Continue fluoxetine, risperidone, lorazepam (3) Osteoporosis: Plan: Hold alendronate (4) Asthma: Plan: Hold Alvesco while on dexamethasone (5) Scoliosis: Plan: Chronic; noted Suspect component of restrictive lung disease related to severe kyphoscoliosis (6) Microcytic anemia: Plan: -was present on admission -Hct stable, no e/o bleeding -check iron panel - serum iron slightly low. ferritin 77 but may be acute phase reactant -start course of oral iron qod -follow up in primary care Plan VTE PPx: SCDs, Lovenox 40mg SQ q24h She is visiting from [facility]. Her mother is also hospitalized here with COVID. (Hanh Haider) At Celia's request I called her sister Анна for update [phone], left voicemail. Admission and Anticipated Discharge Date Admission Date: February 28, 2023 Physical Exam 2 Physical Exam: PHYSICAL EXAMINATION Last 24h vital signs reviewed, see documentation in flowsheet General: up walking in room with therapist and got into chair HEENT: Normocephalic, atraumatic, pupils round and equal, sclerae anicteric, no conjunctival injection, moist mucus membranes Lungs: more comfortable respiratory effort. improved, CTAB today. Not wheezing good air movement. severe kyphosis. Heart: Regular rate and rhythm, no murmurs. No JVD Abdomen: Soft, nontender, nondistended. Bowel sounds present. Extremities: Warm, dry, well-perfused. No extremity edema. Neuro: Alert and oriented x 4, face symmetric, moves 4 extremities well Psych: Normal affect and behavior Results & Data Results & Data Vital Signs (Past 12 Hours) Vital Signs Temp Pulse Pulse Resp BP Pulse Ox O2 Del Method 03/03/23 15:41 36.8 C 97 H 19 161/90 H 93 Nasal Cannula 03/03/23 14:29 76 20 94 Nasal Cannula 03/03/23 12:02 36.4 C L 88 19 158/85 H 93 Nasal Cannula 03/03/23 11:26 91 H 20 96 Nasal Cannula 03/03/23 08:00 86 03/03/23 08:00 Nasal Cannula 03/03/23 07:41 36.5 C 96 H 20 150/79 H 91 Nasal Cannula 03/03/23 07:23 71 17 96 CPAP O2 Flow Rate FiO2 03/03/23 15:41 2 03/03/23 14:29 3 03/03/23 12:02 3 03/03/23 11:26 4 03/03/23 08:00 03/03/23 08:00 4 03/03/23 07:41 4 03/03/23 07:23 25 Laboratory Results 03/03/23 08:28 03/03/23 08:28 PG Care Time/CCT Total # of Minutes Spent Total Time Spent with Patient: Total time spent is greater than 50% in coordination of care (as documented) at patient's floor/unit and/or counseling patient: Coding Level of Care Code 34639 SUB INP/OBS CARE 2/35MIN Diagnoses COVID U07.1 Anxiety F41.9 Osteoporosis M81.0 Asthma J45.909 Scoliosis M41.9 Microcytic anemia D50.9
[2023-03-03] MEDS: FERROUS SULFATE 325 MG TAB PO SCH (16:30)
[2023-03-03] MEDS: risperiDONE 2 MG TABLET PO SCH (20:10)
[2023-03-03] MEDS: BENZONATATE 100 MG CAPSULE PO PRN (21:11)
[2023-03-04] MEDS: ALBUT/IPRATROP 3MG/0.5MG NEB 3 ML VIAL NEB SCH ×4 (07:12→18:40)
[2023-03-04] MEDS: LORazepam 0.5 MG TAB PO SCH (09:08)
[2023-03-04] MEDS: dexAMETHasone 4 MG TAB PO SCH (09:08)
[2023-03-04] MEDS: FLUoxetine HCL 20 MG CAP PO SCH (09:08)
[2023-03-04] MEDS: ENOXAPARIN INJ 40 MG/0.4 ML SYR SQ SCH (09:08)
[2023-03-04] MEDS: BENZONATATE 100 MG CAPSULE PO PRN (14:59)
--- NOTE | 2023-03-04 17:04 | Hospitalist Progress Note ---
Date of Service March 04, 2023 Assessment & Plan (1) COVID: Plan: Sepsis due to COVID-19 was present on admission Acute hypoxic respiratory failure due to COVID-19 pneumonia present on admission GUZMAN and cough started 02/23; COVID+ on 02/24; started on 5-day course of Paxlovid on 02/24 Patient had acute worsening of fever and cough starting 02/26 before admission on 02/28 Initially required respiratory support with BiPAP, improved and now on 2-4 L nasal cannula. -has still been requiring CPAP or BiPAP at night, does not chronically use CPAP/ BiPAP -continue dexamethasone 6 mg po daily - complete 10d or stop when no longer hypoxic -continue duonebs. states history of asthma. not currently wheezing. -WBC remains elevated currently related to steroid effect -hypoxia is slow to improve Consider superimposed bacterial pneumonia. Procal was 0.21 on admission. CXR revealed multifocal airspace opacities which could reflect multifocal pneumonia or pulmonary edema -stopped azithromycin since she has already had greater than 3 x 500 mg doses, repeat procalcitonin 03/02 remained negative (2) Anxiety: Plan: Continue fluoxetine, risperidone, lorazepam (3) Osteoporosis: Plan: Hold alendronate (4) Asthma: Plan: Hold Alvesco while on dexamethasone (5) Scoliosis: Plan: Chronic; noted Suspect component of restrictive lung disease related to severe kyphoscoliosis (6) Microcytic anemia: Plan: -was present on admission -Hct stable, no e/o bleeding -check iron panel - serum iron slightly low. ferritin 77 but may be acute phase reactant -started course of oral iron qod -follow up in primary care Plan VTE PPx: SCDs, Lovenox 40mg SQ q24h She is visiting from [facility]. Her mother is also hospitalized here with COVID. (Hanh Haider) At Celia's request I called her sister Анна for update [phone], spoke with her 03/04l. Admission and Anticipated Discharge Date Admission Date: February 28, 2023 Subjective feels about the same with respect to shortness of breath and cough, feels less weak than a few days ago, has been ambulating in room with staff and sitting in the chair Physical Exam 2 Physical Exam: PHYSICAL EXAMINATION Last 24h vital signs reviewed, see documentation in flowsheet General: sitting up in the chair HEENT: Normocephalic, atraumatic, pupils round and equal, sclerae anicteric, no conjunctival injection, moist mucus membranes Lungs: mildly tachypneic, mildly increased respiratory effort. Not wheezing crackles present left anterior and bibasilar bell. severe kyphosis. Heart: Regular rate and rhythm, no murmurs. No JVD Abdomen: Soft, nontender, nondistended. Bowel sounds present. Extremities: Warm, dry, well-perfused. No extremity edema. Neuro: Alert and oriented x 4, face symmetric, moves 4 extremities well Psych: Normal affect and behavior Results & Data Results & Data Vital Signs (Past 12 Hours) Vital Signs Temp Pulse Pulse Resp BP Pulse Ox O2 Del Method 03/04/23 15:56 99 H 03/04/23 15:30 96 H 20 96 Nasal Cannula 03/04/23 14:51 35.9 C L 93 H 20 160/85 H 95 Nasal Cannula 03/04/23 11:12 37.0 C 94 H 20 148/86 H 92 Nasal Cannula 03/04/23 10:40 79 18 94 Nasal Cannula 03/04/23 08:09 87 03/04/23 08:00 Nasal Cannula 03/04/23 07:25 36.7 C 73 20 152/87 H 93 BiPAP O2 Flow Rate FiO2 03/04/23 15:56 03/04/23 15:30 3 03/04/23 14:51 3 03/04/23 11:12 7 03/04/23 10:40 3 03/04/23 08:09 03/04/23 08:00 4 03/04/23 07:25 25 Laboratory Results 03/03/23 08:28 03/03/23 08:28 PG Care Time/CCT Total # of Minutes Spent Total Time Spent with Patient: Total time spent is greater than 50% in coordination of care (as documented) at patient's floor/unit and/or counseling patient: Coding Level of Care Code 56140 SUB INP/OBS CARE 2/35MIN Diagnoses COVID U07.1 Anxiety F41.9 Osteoporosis M81.0 Asthma J45.909 Scoliosis M41.9 Microcytic anemia D50.9
[2023-03-04] MEDS: risperiDONE 2 MG TABLET PO SCH (21:00)
[2023-03-05] MEDS: ALBUT/IPRATROP 3MG/0.5MG NEB 3 ML VIAL NEB SCH ×4 (07:11→19:33)
[2023-03-05] MEDS: dexAMETHasone 4 MG TAB PO SCH (08:00)
[2023-03-05] MEDS: LORazepam 0.5 MG TAB PO SCH (08:00)
[2023-03-05] MEDS: FLUoxetine HCL 20 MG CAP PO SCH (08:00)
[2023-03-05] MEDS: ENOXAPARIN INJ 40 MG/0.4 ML SYR SQ SCH (08:00)
[2023-03-05] MEDS: BENZONATATE 100 MG CAPSULE PO PRN (12:00)
[2023-03-05] MEDS ORDERED: bisacodyL 10 MG SUPP PR PRN (13:09)
[2023-03-05] MEDS ORDERED: SENNA 8.6 MG TAB PO PRN (13:09)
--- NOTE | 2023-03-05 13:16 | Hospitalist Progress Note ---
Date of Service March 05, 2023 Assessment & Plan (1) COVID: Plan: Sepsis due to COVID-19 was present on admission Acute hypoxic respiratory failure due to COVID-19 pneumonia present on admission GUZMAN and cough started 02/23; COVID+ on 02/24; started on 5-day course of Paxlovid on 02/24 Patient had acute worsening of fever and cough starting 02/26 before admission on 02/28 Initially required respiratory support with BiPAP, improved and now on 2-4 L nasal cannula. -has still been requiring CPAP or BiPAP at night, does not chronically use CPAP/ BiPAP -continue dexamethasone 6 mg po daily - complete 10d or stop when no longer hypoxic -continue duonebs. states history of asthma. not currently wheezing. -WBC remains elevated currently related to steroid effect -hypoxia is slow to improve - has been static for days though generally feeling better. Will get repeat CXR, AM CBC BMP BNP and procal. Consider CTA chest. Consider superimposed bacterial pneumonia. Procal was 0.21 on admission. CXR revealed multifocal airspace opacities which could reflect multifocal pneumonia or pulmonary edema -stopped azithromycin since she has already had greater than 3 x 500 mg doses, repeat procalcitonin 03/02 remained negative (2) Anxiety: Plan: Continue fluoxetine, risperidone, lorazepam (3) Osteoporosis: Plan: Hold alendronate (4) Asthma: Plan: Hold Alvesco while on dexamethasone (5) Scoliosis: Plan: Chronic; noted Suspect component of restrictive lung disease 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 ferritin 77 but may be acute phase reactant -started course of oral iron qod -follow up in primary care Plan VTE PPx: SCDs, Lovenox 40mg SQ q24h Added bowel regimen for constipation She is visiting from [facility]. Her mother is also hospitalized here with COVID. (Hanh Haider) At Celia's request I called her sister Анна for update [phone], spoke with her 03/04 Admission and Anticipated Discharge Date Admission Date: February 28, 2023 Subjective breathing / shortness of breath feels slightly better. frustrated there wasn't enough staff to take her on walks Physical Exam Physical Exam: PHYSICAL EXAMINATION Last 24h vital signs reviewed, see documentation in flowsheet General: sitting up in the chair again today HEENT: Normocephalic, atraumatic, pupils round and equal, sclerae anicteric, no conjunctival injection, moist mucus membranes Lungs: mild tachypneia persists, nonlabored, L anterior crcackles and coarse bilaterally in bases, not wheezing. severe kyphosis Heart: Regular rate and rhythm, no murmurs. No JVD Abdomen: s/nt/nd +BT Extremities: Warm, dry, well-perfused. No extremity edema. Neuro: Alert and oriented x 4, face symmetric, moves 4 extremities well Psych: Normal affect and behavior Results & Data Results & Data Vital Signs (Past 12 Hours) Vital Signs Temp Pulse Pulse Resp BP Pulse Ox O2 Del Method 03/05/23 12:51 36.8 C 88 18 155/89 H 94 Nasal Cannula 03/05/23 10:45 100 H 14 91 Nasal Cannula 03/05/23 08:00 Nasal Cannula 03/05/23 07:48 37.2 C 90 20 160/80 H 89 L Nasal Cannula 03/05/23 07:26 98 H 03/05/23 07:13 88 20 95 BiPAP 03/05/23 04:10 36.5 C 90 20 159/85 H 91 BiPAP O2 Flow Rate FiO2 03/05/23 12:51 4 03/05/23 10:45 4 03/05/23 08:00 4 03/05/23 07:48 3 03/05/23 07:26 03/05/23 07:13 25 03/05/23 04:10 PG Care Time/CCT Total # of Minutes Spent Total Time Spent with Patient: Total time spent is greater than 50% in coordination of care (as documented) at patient's floor/unit and/or counseling patient: Coding Level of Care Code 25739 SUB INP/OBS CARE 2/35MIN Diagnoses COVID U07.1 Anxiety F41.9 Osteoporosis M81.0 Asthma J45.909 Scoliosis M41.9 Microcytic anemia D50.9
[2023-03-05] MEDS: POLYETHYLENE (MIRALAX) 17 GM PACK PO SCH (13:48)
--- NOTE | 2023-03-05 15:28 | XRay Report ---
XR chest 1V portable CLINICAL HISTORY: covid, hypoxia COMPARISON STUDY: Chest radiograph February 28, 2023. FINDINGS: Severe thoracic spine dextroscoliosis is again noted. Cardiomediastinal silhouette is stabl e. Trace bilateral pleural effusions have decreased in size. Bilateral opacities have improved. No ne w sites of consolidation are present. Mild interstitial thickening persists. IMPRESSION: 1. Interval improvement in bilateral airspace opacities. Persistent mild interstitial thickening. Thi s may reflect mild pulmonary edema. 2. Trace bilateral pleural effusions, slightly decreased in size. ACT 112: Negative or not required by law. Electronically signed by: Markell Kimbrough M.D. 03/05/2023 3:26 PM
[2023-03-05] MEDS: FERROUS SULFATE 325 MG TAB PO SCH ×2 (17:01)
[2023-03-05] MEDS: risperiDONE 2 MG TABLET PO SCH (19:08)
[2023-03-06 06:39] LABS: Hematocrit (blood only) 31.5 % (37.0-47.0); Hemoglobin 10.1 g/dl (12.0-16.0); Mean Corpuscular Hemoglobin 25.7 pg (25.0-34.0); Mean Corpuscular Hgb Conc 32.1 g/dL (32.0-36.0); Mean Corpuscular Volume 80.2 fL (80.0-100.0); Platelet Count 502 K/uL (130-400); RDW Coefficient of Variation 14.6 % (11.5-14.5); RDW Standard Deviation 42.8 fL (36.4-46.3); Red Blood Count 3.93 M/uL (4.20-5.40); White Blood Count 20.21 K/ul (4.8-10.8)
[2023-03-06 07:01] LABS: BUN Creatinine Ratio 26.4 (10-20); Calcium 8.4 mg/dl (8.6-10.3); Est GFR (African American) 101.1 ml/min; Est GFR (Non-African American) 87.3 ml/min
[2023-03-06] MEDS: ALBUT/IPRATROP 3MG/0.5MG NEB 3 ML VIAL NEB SCH ×4 (07:15→21:03)
[2023-03-06] MEDS: ENOXAPARIN INJ 40 MG/0.4 ML SYR SQ SCH (07:39)
[2023-03-06] MEDS: POLYETHYLENE (MIRALAX) 17 GM PACK PO SCH (07:39)
[2023-03-06] MEDS: dexAMETHasone 4 MG TAB PO SCH (07:42)
[2023-03-06] MEDS: FLUoxetine HCL 20 MG CAP PO SCH (07:44)
[2023-03-06] MEDS: LORazepam 0.5 MG TAB PO SCH (08:11)
[2023-03-06] MEDS ORDERED: OPTIRAY 320 125ml IV ONE (16:56)
--- NOTE | 2023-03-06 17:45 | Hospitalist Progress Note ---
Date of Service March 06, 2023 Assessment & Plan (1) COVID: Plan: Sepsis due to COVID-19 was present on admission Acute hypoxic respiratory failure due to COVID-19 pneumonia present on admission GUZMAN and cough started 02/23; COVID+ on 02/24; started on 5-day course of Paxlovid on 02/24 Patient had acute worsening of fever and cough starting 02/26 before admission on 02/28 Initially required respiratory support with BiPAP, improved and now on 2-4 L nasal cannula. -has still been requiring CPAP or BiPAP at night, does not chronically use CPAP/ BiPAP -continue dexamethasone 6 mg po daily - complete 10d or stop when no longer hypoxic -continue duonebs. states history of asthma. not currently wheezing. -WBC remains elevated currently related to steroid effect -hypoxia is slow to improve - has been static for days though generally feeling better. CBC BMP BNP and procal reviewed today and unrevealing, leukocytosis persists related to steroids, BNP low procalcitonin negative ordered CTA chest, report not available reviewed films personally she has extremely severe kyphoscoliosis which causes severe distortion of her chest wall and extremely low lung volumes thus she certainly has restrictive lung disease also patchy multifocal bilateral pulmonary opacities are present consistent with her COVID. Await formal report Considered superimposed bacterial pneumonia. Procal was 0.21 on admission and has remained low. CXR revealed multifocal airspace opacities which could reflect multifocal pneumonia or pulmonary edema -stopped azithromycin since she has already had greater than 3 x 500 mg doses, repeat procalcitonin 03/02 remained negative (2) Anxiety: Plan: Continue fluoxetine, risperidone, lorazepam (3) Osteoporosis: Plan: Hold alendronate (4) Asthma: Plan: Hold Alvesco while on dexamethasone (5) Scoliosis: Plan: Chronic; noted there is a component of restrictive lung disease 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 ferritin 77 but may be acute phase reactant -started course of oral iron qod -follow up in primary care Plan VTE PPx: SCDs, Lovenox 40mg SQ q24h Added bowel regimen for constipation She is visiting from [facility]. Her mother is also hospitalized here with COVID. (Hanh Maloney) At Celia's request I called her sister Анна for update [phone], spoke with her 03/04 Admission and Anticipated Discharge Date Admission Date: February 28, 2023 Subjective Celia is stable her shortness of breath is very slowly improving, her general strength is slowly improving. She remains on 3 L oxygen continues to have nighttime CPAP or BiPAP as needed Physical Exam 2 Physical Exam: PHYSICAL EXAMINATION Last 24h vital signs reviewed, see documentation in flowsheet General: sitting up in the chair HEENT: Normocephalic, atraumatic, pupils round and equal, sclerae anicteric, no conjunctival injection, moist mucus membranes Lungs: seems less tachypneic, continues to have left anterior and bibasilar crackles no wheezing. severe kyphosis Heart: Regular rate and rhythm, no murmurs. No JVD Abdomen: s/nt/nd +BT Extremities: Warm, dry, well-perfused. No extremity edema. Neuro: Alert and oriented x 4, face symmetric, moves 4 extremities well Psych: Normal affect and behavior Results & Data Results & Data Vital Signs (Past 12 Hours) Vital Signs Temp Pulse Pulse Resp BP Pulse Ox O2 Del Method 03/06/23 16:53 36.7 C 96 H 18 150/86 H 98 Nasal Cannula 03/06/23 14:51 101 H 18 98 Nasal Cannula 03/06/23 13:37 36.5 C 98 H 20 128/81 97 Nasal Cannula 03/06/23 11:04 100 H 18 96 Nasal Cannula 03/06/23 10:50 Nasal Cannula 03/06/23 10:50 110 H 03/06/23 07:57 36.6 C 102 H 19 168/79 H 91 Nasal Cannula 03/06/23 07:15 99 H 18 96 03/06/23 07:15 99 H 18 96 BiPAP O2 Flow Rate FiO2 03/06/23 16:53 3 03/06/23 14:51 3 03/06/23 13:37 3 03/06/23 11:04 3 03/06/23 10:50 3 03/06/23 10:50 03/06/23 07:57 3 03/06/23 07:15 25 03/06/23 07:15 25 Laboratory Results 03/06/23 06:23 03/06/23 06:23 PG Care Time/CCT Total # of Minutes Spent Total Time Spent with Patient: Total time spent is greater than 50% in coordination of care (as documented) at patient's floor/unit and/or counseling patient: Coding Level of Care Code 58408 SUB INP/OBS CARE 350MIN Diagnoses COVID U07.1 Anxiety F41.9 Osteoporosis M81.0 Asthma J45.909 Scoliosis M41.9 Microcytic anemia D50.9
--- NOTE | 2023-03-06 18:24 | CT Scan Report ---
CT angio chest PE protocol CLINICAL HISTORY: COVID, persistent hypoxia, r/o PE TECHNIQUE: Multidetector row helical CT of the chest was performed with angiographic protocol. Pearl l and sagittal reformations were obtained. Coronal and sagittal MIPS were obtained from the axial arley a set and were submitted for review. Automated dose lowering techniques and/or adjustment according to patient size were utilized for this exam. CT DOSE: 474.22 mGy.cm Comparison: There is bronchiectasis as well is atelectasis favoring the lower lungs. FINDINGS: Lungs and pleura: Normal. Heart and pericardium: Heart size is normal. No pericardial effusion. Vessels: No evidence of pulmonary embolism. Mediastinum and dianne: Unremarkable. Chest wall and lower neck: Unremarkable. Abdomen: Unremarkable. Bones: Scoliosis is seen. IMPRESSION: No acute abnormality and in particular no evidence of pulmonary embolus. Bronchiectasis and mucous pl ugging is seen along with some atelectasis. ACT 112: Negative or not required by law. Electronically signed by: Luisito Flores M.D. 03/06/2023 6:22 PM
[2023-03-06] MEDS: risperiDONE 2 MG TABLET PO SCH (20:03)
[2023-03-06] MEDS: BENZONATATE 100 MG CAPSULE PO PRN (22:28)
[2023-03-07] MEDS: ALBUT/IPRATROP 3MG/0.5MG NEB 3 ML VIAL NEB SCH ×2 (07:34→12:31)
[2023-03-07] MEDS: LORazepam 0.5 MG TAB PO SCH (08:13)
[2023-03-07] MEDS: POLYETHYLENE (MIRALAX) 17 GM PACK PO SCH (08:15)
[2023-03-07] MEDS: FLUoxetine HCL 20 MG CAP PO SCH (08:16)
[2023-03-07] MEDS: ENOXAPARIN INJ 40 MG/0.4 ML SYR SQ SCH (08:16)
[2023-03-07] MEDS: dexAMETHasone 4 MG TAB PO SCH (08:17)
[2023-03-07] MEDS ORDERED: ALBUT/IPRATROP 3MG/0.5MG NEB 3 ML VIAL NEB PRN (11:32)
[2023-03-07] MEDS: guaiFENesin 600 MG TABCR PO SCH ×2 (12:18→20:53)
[2023-03-07] MEDS: FERROUS SULFATE 325 MG TAB PO SCH (16:07)
--- NOTE | 2023-03-07 17:10 | Hospitalist Progress Note ---
Date of Service March 07, 2023 Assessment & Plan (1) COVID: Plan: Sepsis due to COVID-19 was present on admission Acute hypoxic respiratory failure due to COVID-19 pneumonia present on admission GUZMAN and cough started 02/23; COVID+ on 02/24; started on 5-day course of Paxlovid on 02/24 Patient had acute worsening of fever and cough starting 02/26 before admission on 02/28 Initially required respiratory support with BiPAP, improved and now on 2-4 L nasal cannula. Earlier in hospital course had treatment with azithromycin, serial procalcitonins have been negative. -has still been requiring CPAP or BiPAP at night, does not chronically use CPAP/ BiPAP - will try to stop 03/07 -continue dexamethasone 6 mg po daily - complete 10d or stop when no longer hypoxic -continue duonebs changed to prn. states history of asthma. not currently wheezing. -WBC remains elevated currently related to steroid effect -hypoxia is slow to improve - has been static for days though generally feeling better. CBC BMP unrevealing, leukocytosis persists related to steroids, BNP low procalcitonin negative reviewed CTA chest 03/07 no PE, some viral infiltrates, bibasilar atelectasis and bronchietasis -added acapella and mucinex -discussed with pulm added bid hypertolic saline nebs and IS, doing well with mobility -suspect component of hypoxia and restrictive lung disease due to kyphosis -almost certainly will require home O2 (2) Anxiety: Plan: Continue fluoxetine, risperidone, lorazepam (3) Osteoporosis: Plan: Hold alendronate (4) Asthma: Plan: Hold Alvesco while on dexamethasone (5) Scoliosis: Plan: Chronic; noted there is a component of restrictive lung disease 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 ferritin 77 but may be acute phase reactant -started course of oral iron qod -follow up in primary care Plan VTE PPx: SCDs, Lovenox 40mg SQ q24h Added bowel regimen for constipation She is visiting from [facility]. Her mother was also hospitalized here with COVID but is now home at her [facility]. At Celia's request I called her sister Анна for update [phone], spoke with her 03/04 Admission and Anticipated Discharge Date Admission Date: February 28, 2023 Physical Exam 2 Physical Exam: PHYSICAL EXAMINATION Last 24h vital signs reviewed, see documentation in flowsheet General: sitting in chair per her routine HEENT: moist mucus membranes Lungs: tachypneic, nonlabored, bibasilar crackles. severe kyphosis Heart: Regular rate and rhythm, no murmurs. No JVD Abdomen: s/nt/nd +BT Extremities: Warm, dry, well-perfused. No extremity edema. Neuro: Alert and oriented x 4, face symmetric, moves 4 extremities well Psych: Normal affect and behavior Results & Data Results & Data Vital Signs (Past 12 Hours) Vital Signs Temp Pulse Pulse Resp BP Pulse Ox O2 Del Method 03/07/23 16:31 36.7 C 98 H 18 158/93 H 98 Nasal Cannula 03/07/23 16:24 103 H 03/07/23 11:39 36.8 C 103 H 18 126/76 93 Room Air 03/07/23 09:20 96 H 03/07/23 09:20 Nasal Cannula 03/07/23 08:00 36.6 C 90 14 148/90 H 92 Nasal Cannula 03/07/23 07:35 97 H 16 94 Nasal Cannula 03/07/23 05:24 98 H 17 93 O2 Flow Rate FiO2 03/07/23 16:31 3 03/07/23 16:24 03/07/23 11:39 03/07/23 09:20 03/07/23 09:20 4 03/07/23 08:00 4 03/07/23 07:35 3 03/07/23 05:24 25 Laboratory Results 03/06/23 06:23 03/06/23 06:23 PG Care Time/CCT Total # of Minutes Spent Total Time Spent with Patient: Total time spent is greater than 50% in coordination of care (as documented) at patient's floor/unit and/or counseling patient: Coding Level of Care Code 45297 SUB INP/OBS CARE 3/50MIN Diagnoses COVID U07.1 Anxiety F41.9 Osteoporosis M81.0 Asthma J45.909 Scoliosis M41.9 Microcytic anemia D50.9
[2023-03-07] MEDS: SODIUM CHLOR 7% 4 ML NEB NEB SCH (19:53)
[2023-03-07] MEDS: risperiDONE 2 MG TABLET PO SCH (20:53)
[2023-03-07] MEDS: BENZONATATE 100 MG CAPSULE PO PRN (22:45)
[2023-03-08] MEDS: SODIUM CHLOR 7% 4 ML NEB NEB SCH ×2 (07:24→19:34)
[2023-03-08] MEDS: ENOXAPARIN INJ 40 MG/0.4 ML SYR SQ SCH (08:07)
[2023-03-08] MEDS: LORazepam 0.5 MG TAB PO SCH (08:07)
[2023-03-08] MEDS: dexAMETHasone 4 MG TAB PO SCH (08:07)
[2023-03-08] MEDS: FLUoxetine HCL 20 MG CAP PO SCH (08:08)
[2023-03-08] MEDS: POLYETHYLENE (MIRALAX) 17 GM PACK PO SCH (08:09)
[2023-03-08] MEDS: guaiFENesin 600 MG TABCR PO SCH ×2 (08:09→20:49)
--- NOTE | 2023-03-08 14:16 | Hospitalist Progress Note ---
Date of Service March 08, 2023 Assessment & Plan (1) COVID: Plan: Sepsis due to COVID-19 was present on admission, resolved Acute hypoxic respiratory failure due to COVID-19 pneumonia present on admission - persists GUZMAN and cough started 02/23; COVID+ on 02/24; started on 5-day course of Paxlovid on 02/24 Patient had acute worsening of fever and cough starting 02/26 before admission on 02/28 Initially required respiratory support with BiPAP, improved and now on 2-4 L nasal cannula. Earlier in hospital course had treatment with azithromycin, serial procalcitonins have been negative. -had still been requiring CPAP or BiPAP at night, does not chronically use CPAP/ BiPAP -evening of 02/3031 did not use BiPAP and is tolerating so far -continue dexamethasone 6 mg po daily - complete 10d or stop when no longer hypoxic (end 03/16) -continue duonebs changed to prn. states history of asthma. not currently wheezing. -hypoxia is slow to improve - has been static for days though feeling better and functional status much better. CBC BMP unrevealing, leukocytosis persists related to steroids, BNP low procalcitonin negative reviewed CTA chest 03/07 no PE, some viral infiltrates, bibasilar atelectasis and bronchietasis -added acapella and mucinex -discussed with pulm added bid hypertolic saline nebs and IS, doing well with mobility -suspect component of hypoxia and restrictive lung disease due to severe kyphoscoliosis -almost certainly will require home O2. 03/07 room air O2 sat was 80%. (2) Anxiety: Plan: Continue fluoxetine, risperidone, lorazepam (3) Osteoporosis: Plan: Hold alendronate (4) Asthma: Plan: Hold Alvesco while on dexamethasone (5) Scoliosis: Plan: Chronic; noted there is a component of restrictive lung disease 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 ferritin 77 but may be acute phase reactant -started course of oral iron qod -follow up in primary care Plan VTE PPx: SCDs, Lovenox 40mg SQ q24h Added bowel regimen for constipation She is visiting from [facility]. Her mother was also hospitalized here with COVID but is now home at her [facility]. At Celia's request I called her sister Анна for update [phone], spoke with her 03/04 Admission and Anticipated Discharge Date Admission Date: February 28, 2023 Subjective States she is having a pretty good day and that her breathing is feeling better Nursing reports she is walking around frequently Tolerated no BiPAP last night was only on 2.5 L nasal cannula this morning when I rounded Physical Exam Physical Exam: PHYSICAL EXAMINATION Last 24h vital signs reviewed, see documentation in flowsheet General: sitting in chair per her routine HEENT: moist mucus membranes Lungs: tachypneic, nonlabored, left anterior crackles have improved, bibasilar crackles persist. severe kyphosis Heart: Regular rate and rhythm, no murmurs. No JVD Abdomen: s/nt/nd +BT Extremities: Warm, dry, well-perfused. No extremity edema. Neuro: Alert and oriented x 4, face symmetric, moves 4 extremities well Psych: Normal affect and behavior Results & Data Results & Data Vital Signs (Past 12 Hours) Vital Signs Temp Pulse Pulse Resp BP BP Pulse Ox 03/08/23 10:38 36.6 C 103 H 19 122/79 99 03/08/23 09:00 95 H 03/08/23 09:00 03/08/23 07:44 36.8 C 114 H 19 146/78 H 96 03/08/23 07:26 104 H 14 95 03/08/23 03:07 36.7 C 95 H 18 138/84 96 O2 Del Method O2 Flow Rate FiO2 03/08/23 10:38 Nasal Cannula 3 03/08/23 09:00 03/08/23 09:00 Nasal Cannula 3 03/08/23 07:44 Nasal Cannula 3 03/08/23 07:26 Room Air 21 03/08/23 03:07 Nasal Cannula PG Care Time/CCT Total # of Minutes Spent Total Time Spent with Patient: Total time spent is greater than 50% in coordination of care (as documented) at patient's floor/unit and/or counseling patient: Coding Level of Care Code 26678 SUB INP/OBS CARE 2/35MIN Diagnoses COVID U07.1 Anxiety F41.9 Osteoporosis M81.0 Asthma J45.909 Scoliosis M41.9 Microcytic anemia D50.9
[2023-03-08] MEDS: risperiDONE 2 MG TABLET PO SCH (20:49)
[2023-03-09] MEDS: SODIUM CHLOR 7% 4 ML NEB NEB SCH (07:18)
[2023-03-09 07:46] LABS: Hemoglobin 10.7 g/dl (12.0-16.0); Mean Corpuscular Hemoglobin 25.8 pg (25.0-34.0); Mean Corpuscular Hgb Conc 32.4 g/dL (32.0-36.0); Mean Corpuscular Volume 79.7 fL (80.0-100.0); Mean Platelet Volume 9.1 fL (9.4-12.4); Platelet Count 585 K/uL (130-400); RDW Coefficient of Variation 14.8 % (11.5-14.5); RDW Standard Deviation 42.9 fL (36.4-46.3); Red Blood Count 4.14 M/uL (4.20-5.40); White Blood Count 8.23 K/ul (4.8-10.8)
[2023-03-09 08:07] LABS: BUN Creatinine Ratio 26.8 (10-20); Calcium 8.7 mg/dl (8.6-10.3); Creatinine Clr Calc Pharmacy 62.8 ml/min; Est GFR (African American) 102.9 ml/min; Est GFR (Non-African American) 88.8 ml/min; Potassium 4.4 mmol/L (3.5-5.1)
[2023-03-09] MEDS: dexAMETHasone 4 MG TAB PO SCH (09:04)
[2023-03-09] MEDS: ENOXAPARIN INJ 40 MG/0.4 ML SYR SQ SCH (09:05)
[2023-03-09] MEDS: FLUoxetine HCL 20 MG CAP PO SCH (09:05)
[2023-03-09] MEDS: POLYETHYLENE (MIRALAX) 17 GM PACK PO SCH (09:06)
[2023-03-09] MEDS: guaiFENesin 600 MG TABCR PO SCH ×2 (09:06→21:05)
[2023-03-09] MEDS: LORazepam 0.5 MG TAB PO SCH (09:06)
[2023-03-09] MEDS ORDERED: SODIUM CHLOR 7% 4 ML NEB NEB PRN (13:16)
[2023-03-09] MEDS: FERROUS SULFATE 325 MG TAB PO SCH (15:48)
--- NOTE | 2023-03-09 17:36 | Hospitalist Progress Note ---
Date of Service March 09, 2023 Assessment & Plan (1) COVID: Plan: Symptoms began ~02/23 COVID+ on 02/24 5-day course of Paxlovid initiated on 02/24 Acute worsening of fever and cough starting 02/26 Admission to [facility] on 02/28 Initially required respiratory support with BiPAP Then over to [place] and has been weaning such since then Remains on dexamethasone 6 mg po daily - day #10 of 10 today Cont flutter valve, incentive chani, bronchodilators prn Can make saline nebs prn - minimal sputum at this point (2) Acute hypoxemic respiratory failure: Plan: 2nd to COVID- infection nearly resolved cont to wean O2 (3) Sepsis: Plan: 2nd COVID- infection - resolved (4) Anxiety: Plan: Continue fluoxetine, risperidone, lorazepam (5) Osteoporosis: Plan: Hold alendronate (6) Asthma: Plan: Holding Alvesco while on dexamethasone (7) Scoliosis: Plan: severe (8) Microcytic anemia: Plan: H/H stable ferritin 77 but may be acute phase reactant PO ferrous sulfate started this admission f/u with PCP for this in [place] (9) Bronchiectasis: Plan: as seen on chest CT (10) Restrictive lung disease due to kyphoscoliosis: (11) DVT prophylaxis: Plan: currently on lovenox consider PO Eliquis x 30 days post-discharge at higher risk of VTE due to prolonged illness, recent travel from [place], and additional travel being planned back to [place] in the next few weeks Plan pt's sister Анна updated by phone today ([phone]) await PT/OT evals for disposition constipation - cont miralax Admission and Anticipated Discharge Date Admission Date: February 28, 2023 Subjective tele - NSR or sinus tach pt resting comfortably in the chair during the visit down to 1 L NC O2 only feeling better minimal cough denies dyspnea her plan is still to stay at her mother's place at [facility] post- discharge eating ok drinking ok Review of Systems Review of Systems: gen - no fevers or chills cv - no chest pain pulm - no sputum GI - no nausea or vomiting; having some constipation Physical Exam Physical Exam: gen - thin, NAD, sitting in chair mouth - MMM neck - no JVD heart - RR, tachy, s1 s2, 2/6 DAWSON LSB lungs - mildly decreased BS bases, otherwise CTA b/l; no rales; no wheeze abd - soft NT ND BS+ musculo - severe kyphoscoliosis ext - no edema, pulses 2+ b/l psych - a/o x 3 Results & Data Results & Data Vital Signs (Past 12 Hours) Vital Signs Temp Pulse Resp BP BP Pulse Ox O2 Del Method 03/09/23 15:16 36.6 C 100 H 18 117/71 99 Room Air 03/09/23 11:36 36.5 C 101 H 18 119/75 100 Nasal Cannula 03/09/23 10:00 Nasal Cannula 03/09/23 07:31 36.5 C 98 H 18 116/73 97 Nasal Cannula 03/09/23 07:18 82 16 98 Nasal Cannula O2 Flow Rate 03/09/23 15:16 03/09/23 11:36 2 03/09/23 10:00 4 03/09/23 07:31 2 03/09/23 07:18 2 Laboratory Results Laboratory Results - last 24 hr 03/09/23 07:10 WBC 8.23 RBC 4.14 L Hgb 10.7 L Hct 33.0 L MCV 79.7 L MCH 25.8 MCHC 32.4 RDW Std Deviation 42.9 RDW Coeff of Rogelio 14.8 H Plt Count 585 H MPV 9.1 L Sodium 134 L Potassium 4.4 Chloride 95 L Carbon Dioxide 33 H Anion Gap 6 BUN 19 Creatinine 0.71 Est Cr Clr Drug Dosing 62.8 Est GFR ( Amer) 102.9 Est GFR (Non-Af Amer) 88.8 BUN/Creatinine Ratio 26.8 H Glucose 98 Calcium 8.7 PG Care Time/CCT Total # of Minutes Spent Total Time Spent with Patient: Total time spent is greater than 50% in coordination of care (as documented) at patient's floor/unit and/or counseling patient: Coding Level of Care Code 08694 SUB INP/OBS CARE 2/35MIN Diagnoses COVID U07.1 Acute hypoxemic respiratory failure J96.01 Sepsis A41.9 Anxiety F41.9 Osteoporosis M81.0 Asthma J45.909 Scoliosis M41.9 Microcytic anemia D50.9 Bronchiectasis J47.9 Restrictive lung disease due to kyphoscoliosis J98.4; M41.9 DVT prophylaxis Z29.9
[2023-03-09] MEDS: risperiDONE 2 MG TABLET PO SCH (21:05)
[2023-03-10] MEDS: LORazepam 0.5 MG TAB PO SCH (09:06)
[2023-03-10] MEDS: guaiFENesin 600 MG TABCR PO SCH ×2 (09:06→19:49)
[2023-03-10] MEDS: ENOXAPARIN INJ 40 MG/0.4 ML SYR SQ SCH (09:07)
[2023-03-10] MEDS: FLUoxetine HCL 20 MG CAP PO SCH (09:07)
[2023-03-10] MEDS: POLYETHYLENE (MIRALAX) 17 GM PACK PO SCH (09:08)
--- NOTE | 2023-03-10 10:26 | XCELERA ---
[id number] \\[id number]
[2023-03-10 11:08] LABS: Hemoglobin 11.2 g/dl (12.0-16.0); Mean Corpuscular Hemoglobin 26.1 pg (25.0-34.0); Mean Corpuscular Hgb Conc 32.9 g/dL (32.0-36.0); Mean Corpuscular Volume 79.3 fL (80.0-100.0); Mean Platelet Volume 9.2 fL (9.4-12.4); Platelet Count 578 K/uL (130-400); RDW Coefficient of Variation 14.7 % (11.5-14.5); RDW Standard Deviation 42.7 fL (36.4-46.3); Red Blood Count 4.29 M/uL (4.20-5.40); White Blood Count 10.09 K/ul (4.8-10.8)
[2023-03-10 11:21] LABS: BUN Creatinine Ratio 31.3 (10-20); Calcium 8.6 mg/dl (8.6-10.3); Creatinine Clr Calc Pharmacy 66.6 ml/min; Est GFR (African American) 106.2 ml/min; Est GFR (Non-African American) 91.6 ml/min; Iron 125 mcg/dl (35-150); Potassium 4.5 mmol/L (3.5-5.1); Total Iron Binding Cap Calc 318 mcg/dl (250-450); Transferrin (FE) Percent Satur 39 % (15-50); Unsaturated Iron Binding Cap 193 mcg/dl (155-355)
[2023-03-10] MEDS: risperiDONE 2 MG TABLET PO SCH (19:49)
--- NOTE | 2023-03-10 20:17 | Hospitalist Progress Note ---
Date of Service March 10, 2023 Assessment & Plan (1) COVID: Plan: Symptoms began ~02/23 COVID+ on 02/24 5-day course of Paxlovid initiated on 02/24 Acute worsening of fever and cough starting 02/26 Admission to [facility] on 02/28 Initially required respiratory support with BiPAP Then over to [place] and has been weaned off from all O2 support s/p 10-day course of dexamethasone 6 mg po daily - steroids stopped Cont flutter valve, incentive chani, bronchodilators prn airborne isolation d/c today passed 2-step O2 test today (2) Acute hypoxemic respiratory failure: Plan: 2nd to COVID-19 infection resolved she is off all O2 support at this time (3) Sepsis: Plan: 2nd COVID-19 infection - resolved (4) Anxiety: Plan: Continue fluoxetine, risperidone, lorazepam (5) Osteoporosis: Plan: Hold alendronate (6) Asthma: Plan: Resume Alvesco at discharge (7) Scoliosis: Plan: severe (8) Microcytic anemia: Plan: H/H stable ferritin 77 transferrin sat >20% Fe studies not c/w Fe def microcytosis 2nd to thalaseemia? recommend Hb electrophoresis as outpatient f/u with PCP for this in [place] (9) Bronchiectasis: Plan: as seen on chest CT gave copy of her chest CT to her f/u with PCP and/or pulmonology [place] (10) Restrictive lung disease due to kyphoscoliosis: (11) DVT prophylaxis: Plan: SC lovenox consider PO Eliquis 2.5mg BID x 30 days post-discharge at higher risk of VTE due to prolonged illness, recent travel from [place], and additional travel being planned back to [place] in the next few weeks (12) Murmur: Plan: 2nd to AV sclerosis but no other valves wnl EF wnl tachycardia - etiology? check TSH in am Plan pt's sister Анна updated by phone yesterday ([phone]) left message for Анна again today on voicemail passed PT/OT evals - can d/c tomorrow am Admission and Anticipated Discharge Date Admission Date: February 28, 2023 Subjective o2 was weaned off yesterday and has remained stable in RA since then passed 2-step ambulatory O2 test she feels overall much better "weak" but better in comparison to when she first got admitted minimal cough at this point eating well tele stable - NSR or sinus tach Review of Systems Review of Systems: gen - no fevers or chills cv - no chest pain GI - no abd pain or N/V Physical Exam Physical Exam: gen - thin, NAD, sitting in chair - looks well mouth - MMM neck - no JVD heart - RRR, s1 s2, 2/6 DAWSON LSB lungs - mildly decreased BS bases, otherwise CTA b/l; no rales; no wheeze abd - soft NT ND BS+ musculo - severe kyphoscoliosis ext - no edema, pulses 2+ b/l psych - a/o x 3 Results & Data Results & Data Vital Signs (Past 12 Hours) Vital Signs Temp Pulse Pulse Pulse Resp Resp Resp 03/10/23 19:21 36.6 C 105 H 20 03/10/23 16:07 108 H 106 H 18 18 03/10/23 15:14 36.7 C 100 H 18 03/10/23 14:34 03/10/23 13:38 106 H 03/10/23 13:37 103 H 03/10/23 13:37 103 H BP BP Pulse Ox Pulse Ox Pulse Ox O2 Del Method 03/10/23 19:21 130/70 95 Room Air 03/10/23 16:07 95 97 03/10/23 15:14 120/79 97 Room Air 03/10/23 14:34 96 03/10/23 13:38 109/75 03/10/23 13:37 112/75 03/10/23 13:37 123/76 Laboratory Results Laboratory Results - last 24 hr 03/10/23 10:41 WBC 10.09 RBC 4.29 Hgb 11.2 L Hct 34.0 L MCV 79.3 L MCH 26.1 MCHC 32.9 RDW Std Deviation 42.7 RDW Coeff of Rogelio 14.7 H Plt Count 578 H MPV 9.2 L Sodium 133 L Potassium 4.5 Chloride 94 L Carbon Dioxide 33 H Anion Gap 6 BUN 21 Creatinine 0.67 Est Cr Clr Drug Dosing 66.6 Est GFR ( Amer) 106.2 Est GFR (Non-Af Amer) 91.6 BUN/Creatinine Ratio 31.3 H Glucose 108 H Calcium 8.6 Iron 125 TIBC 318 Unsaturated IBC 193 Transferrin % Sat 39 PG Care Time/CCT Total # of Minutes Spent Total Time Spent with Patient: Total time spent is greater than 50% in coordination of care (as documented) at patient's floor/unit and/or counseling patient: Coding Level of Care Code 16823 SUB INP/OBS CARE 2/35MIN Diagnoses COVID U07.1 Acute hypoxemic respiratory failure J96.01 Sepsis A41.9 Anxiety F41.9 Osteoporosis M81.0 Asthma J45.909 Scoliosis M41.9 Microcytic anemia D50.9 Bronchiectasis J47.9 Restrictive lung disease due to kyphoscoliosis J98.4; M41.9 DVT prophylaxis Z29.9 Murmur R01.1
[2023-03-11] MEDS: guaiFENesin 600 MG TABCR PO SCH (07:55)
[2023-03-11] MEDS: FLUoxetine HCL 20 MG CAP PO SCH (07:55)
[2023-03-11] MEDS: POLYETHYLENE (MIRALAX) 17 GM PACK PO SCH (07:56)
[2023-03-11] MEDS: LORazepam 0.5 MG TAB PO SCH (07:56)
[2023-03-11] MEDS: ENOXAPARIN INJ 40 MG/0.4 ML SYR SQ SCH (07:57)
[2023-03-11 08:31] LABS: Hematocrit (blood only) 35.9 % (37.0-47.0); Hemoglobin 11.6 g/dl (12.0-16.0); Mean Corpuscular Hemoglobin 26.2 pg (25.0-34.0); Mean Corpuscular Hgb Conc 32.3 g/dL (32.0-36.0); Mean Corpuscular Volume 81.2 fL (80.0-100.0); Platelet Count 600 K/uL (130-400); RDW Coefficient of Variation 14.6 % (11.5-14.5); RDW Standard Deviation 42.9 fL (36.4-46.3); Red Blood Count 4.42 M/uL (4.20-5.40); White Blood Count 7.36 K/ul (4.8-10.8)
[2023-03-11 08:41] LABS: BUN Creatinine Ratio 23.9 (10-20); Calcium 8.5 mg/dl (8.6-10.3); Creatinine Clr Calc Pharmacy 66.5 ml/min; Est GFR (African American) 106.2 ml/min; Est GFR (Non-African American) 91.6 ml/min; Potassium 3.9 mmol/L (3.5-5.1)
[2023-03-11 08:57] LABS: Thyroid Stimulating Hormone 2.529 uIu/ml (0.300-4.500)
[2023-03-11 09:06] LABS: Folate (Folic Acid),Ser orPlas > 22.30 ng/ml (>5.38)
[2023-03-11 09:07] LABS: Vitamin B12 > 1500 pg/ml (180-914)
--- NOTE | 2023-03-11 13:27 | Discharge Summary ---
Date of Service March 11, 2023 Admission HPI Per Admitting Provider Celia is a 67-year-old female with PMH of osteoporosis, scoliosis, and asthma. Patient came in for worsening GUZMAN since 02/23; she tested positive for COVID on 02/24. She has been on Paxlovid since 02/24, and has 1 more dose to take on 02/28 at time of admission. Patient reports that she has had low-grade fevers starting 2 days ago, with the last being the morning of 02/28; she reports it was at 100 F. She did not take anything for the fevers. She is not on oxygen at baseline. She does not use a CPAP at night. Patient reports that she has received COVID shots x 2 as well as her booster this year; she is also had her flu shot and RSV shots this year. She reports that she does not normally have problems with aspiration. She took all of her regular morning medications, and reports no recent medication changes. In terms of sick contacts, she was recently staying with her 95-year-old mother at [facility], who is also sick. She noted that she would want her sister, Анна Alexis, to make medical decisions for her if she were unable to. Patient is at 92% SpO2 on BiPAP at time of admission. ED course: NSS 1500 mL IV Decadron 6 mg IV DuoNeb 6 mL ROS: Patient endorses fever, dry cough x 2 days, loose bowels (no diarrhea), back pain, and dry mouth Patient denies dizziness, lightheadedness, NICHOLAS, chest pain, abdominal pain, N/V, burning with urination, dysuria, or numbness/tingling down the arms/legs. Discharge Exam gen - thin, NAD, sitting in chair - looks well mouth - MMM neck - no JVD heart - RRR, s1 s2, 2/6 DAWSON LSB lungs - mildly decreased BS bases, otherwise CTA b/l; no rales; no wheeze abd - soft NT ND BS+ musculo - severe kyphoscoliosis ext - no edema, pulses 2+ b/l psych - a/o x 3 Discharge Data Allergies Allergy/AdvReac Type Severity Reaction Status Date / Time diazepam [From Valium] AdvReac Intermediate Dizziness Verified 02/28/23 19:48 hydrocodone [From Vicodin] AdvReac Intermediate Dizziness Verified 02/28/23 19:48 soy AdvReac Intermediate Gastrointestinal Verified 02/28/23 19:48 Upset Tetracyclines AdvReac Intermediate Dizziness Verified 02/28/23 19:48 Consultations 02/28/23 19:36 ED Decision to Admit Stat 03/10/23 14:43 Burn CD for patient Routine Ordered Studies 03/06/23 10:47 CT angio chest PE protocol Routine Hospital Course (1) COVID: Symptoms began ~02/23 COVID+ on 02/24 5-day course of Paxlovid initiated on 02/24 Acute worsening of fever and cough starting 02/26 Admission to [facility] on 02/28 Initially required respiratory support with BiPAP Then over to [place] and has been weaned off from all O2 support s/p 10-day course of dexamethasone 6 mg po daily - steroids stopped Cont flutter valve, incentive chani, bronchodilators prn airborne isolation d/c today passed 2-step O2 test today (2) Acute hypoxemic respiratory failure: 2nd to COVID- infection resolved she is off all O2 support at this time (3) Sepsis: 2nd COVID- infection - resolved (4) Anxiety: Continue fluoxetine, risperidone, lorazepam (5) Osteoporosis: Hold alendronate (6) Asthma: Resume Alvesco at discharge (7) Scoliosis: severe (8) Microcytic anemia: H/H stable ferritin 77 transferrin sat >20% Fe studies not c/w Fe def microcytosis 2nd to thalaseemia? recommend Hb electrophoresis as outpatient f/u with PCP for this in [place] (9) Bronchiectasis: as seen on chest CT gave copy of her chest CT to her f/u with PCP and/or pulmonology in [place] (10) Restrictive lung disease due to kyphoscoliosis: (11) DVT prophylaxis: SC lovenox consider PO Eliquis 2.5mg BID x 30 days post-discharge at higher risk of VTE due to prolonged illness, recent travel from [place], and additional travel being planned back to [place] in the next few weeks (12) Murmur: 2nd to AV sclerosis but no other valves wnl EF wnl tachycardia - etiology? check TSH in am Plan pt's sister Анна updated by phone yesterday ([phone]) left message for Анна again today on voicemail passed PT/OT evals - can d/c tomorrow am Discharge Plan Discharge Items Patient Disposition: Home - Self-Care Reason For Visit: COVID illness Discharge Diagnosis: 1. COVID-19 infection/pneumonia - resolved 2. Mild anemia 3. Mild hyponatremia (low sodium level) 4. Severe kyphoscoliosis 5. Mild bronchiectasis seen on CT chest 6. Mild heart murmur - echocardiogram of your heart essentially normal Activity: As commented below Activity Comment: gradually increase your activities over the next 1-2 weeks Non-emergency contact: Primary Care Provider Call non-emergency contact if: you have any medication questions, your symptoms worsen and you have a fever Follow-up/Referrals: Mary Singletary MD [Other] (please see your family doctor within a few days of return to [place]) Diet: Regular Ambulatory Orders: Basic Metabolic Panel (Routine) Timeframe: 20230316 Location: Determined by Patient Ordered By: Venkata Aguilar Complete Blood Count with Diff (Routine) Timeframe: 20230316 Location: Determined by Patient Ordered By: Venkata Aguilar Add Attending Provider Instructions: Ms Corley, You were hospitalized due to COVID illness and COVID pneumonia. You were treated with oxygen, steroids, and Paxlovid. Your symptoms gradually improved with the above. Oxygen was weaned off about 2 days before hospital discharge. A walking oxygen test showed that you do not need oxygen at home. CT scan of the chest showed COVID pneumonia as well as "bronchiectasis." There was only small amounts of the bronchiectasis on CT scan. Bronchiectasis is when the bronchiole tubes get damaged (sometimes by an infection in the past, sometimes from other conditions). When there is scarring in the bronchiole tubes it can make it harder to clear mucous from the lungs. Some people with bronchiectasis are prone to recurrent respiratory infection. There is nothing specific to do for the bronchiectasis at this time. In addition to the above we noted that you were mildly anemic upon admission. Your presenting hemoglobin was 10 (normal 12 and up). Iron studies were normal. B12 and folate levels were normal. Upon return to [place] please have your family doctor recheck your blood counts. You could have something called Thalaseemia which is an inherited form of anemia. There could be many other things contributing to the mild anemia. Your family doctor can do additional testing. You had very mild hyponatremia (low sodium) during your stay. Normal is 135 and up. Your sodium level was 132-133 at discharge. Some of the studies suggest you need extra salt in your diet. Finally, due to your recent travel from [place], your prolonged stay in the hospital, your COVID infection, and upcoming flight back to [place] you have a high risk of DVT blood clots in your legs and clots in your lungs. To prevent blood clots we are prescribing a low-dose of a blood thinner for 30 days. Recommendations - 1. Xarelto blood thinner - 10mg once daily starting 03/12/23 (see handout). Take for 30 days. This is to prevent DVT blood clots of the legs and clots of the lungs. Be sure to bring the voucher with you to the pharmacy; it should be free for you. 2. DO NOT TAKE [id number] anti-inflammatory pills with the Xarelto. Avoid motrin, ibuprofen, naprosyn, alleve, etc. IT IS OK to take tylenol for aches/pains. 3. HOLD your fosamax for the next 4 weeks. 4. Salt tablet - take 1 tablet once daily x 7 days, first dose sometime today. 5. Have a blood draw at [facility] next Thursday. NO need to fast for this blood draw. Just come to the [facility] main entrance for this blood draw. I am rechecking your sodium level and blood counts to ensure they are stable before you fly back home. 6. Ok to add a little extra salt into your diet over the next week or two. 7. For a few days please use your flutter valve and incentive spirometer. 8. You likely have another 1-2 weeks of recovery still. Fatigue, mild cough, etc might linger during this time period. This is normal. Follow-up - see your family doctor upon return to [place] Return to [facility] if - * you have fever over 100 degrees * you have worsening shortness of breath * you have chest pains * you have bleeding from any location as listed in this document * any other concerns It was our pleasure to care for you! Addtl [employer] Provider Instructions: XARELTO Medication Instructions: We are prescribing low-dose Xarelto in order to prevent blood clots during your recovery from COVID-19. Xarelto is a blood thinner or "anticoagulant." * You should take your medication exactly as directed. * Never skip a dose. * Never take a double dose. If you miss a dose, take it as soon as you remember. Call your Primary Care doctor if you experience any of the following: * Swelling or Pain in your leg * Sudden, continuous pain deep in a muscle * Pain that worsens when you are active or when you stand still for a long time * Chest Pain * Sudden Shortness of Breath * Rapid or pounding heart beat * Fainting * Dizziness * Cough with blood or bloody sputum * Sweating more than normal * Bruises * Heavy or uncontrolled bleeding * Blood in your urine, stool or vomit * Black or tarry stools * Heavy nosebleeding Caring for Your Self at Home: * Avoid sitting, standing or lying down for long periods without moving your legs and feet * When traveling by car, stop to get out and move around at least once every 3 hours * On long airplane, train or bus rides, get up and move around when possible * If you can't get up, wiggle your toes and tighten your calves to keep your blood moving Pending Studies at Discharge: No Stand-Alone Forms: [facility], Smoking Cessation Medications and DC Order Prescriptions: New sodium chloride 1,000 mg tablet,soluble 1,000 mg PO DAILY 7 Days Qty: 7 0RF Xarelto 10 mg tablet 10 mg PO DAILY 30 Days Qty: 30 0RF Rx Instructions: start 03/12/2023. pantoprazole [Protonix] 40 mg tablet,delayed release (DR/EC) 40 mg PO QAM 30 Days Qty: 30 0RF Rx Instructions: start 03/12/23. Continued risperidone 2 mg tablet 2 mg PO HS lorazepam 0.5 mg tablet 0.5 mg PO DAILY Alvesco 160 mcg/actuation HFA aerosol inhaler 1 inh INHALATION BID Qty: 6.1 0RF Rx Instructions: be sure to rinse your mouth with water after each use; spit the water out. Changed fluoxetine 40 mg capsule 80 mg PO DAILY Qty: 1 0RF Held alendronate 70 mg tablet 70 mg PO WK Hold Instructions: Please hold for the next few weeks while you are on Xarelto; can resume once off the Xarelto. Rx Instructions: WEDNESDAYS Discontinued Paxlovid 300 mg (150 mg x 2)-100 mg tablets,dose pack 1 ea PO DIRECTED Rx Instructions: STARTED 02/24/23 FOR 5 DAYS. Discharge Orders: Discharge Order (Routine); Ordered 03/11/23 Ordered By: Venkata Casanova/Other Patient Handouts: Rivaroxaban Oral Tablet 10 mg Admission Data Admit Date/Time: 02/28/23 21:39 Attending Provider: Venkata Aguilar Admit Provider: Rodriguez Guzman Primary Care Provider: PCP,NO Other Providers: Rodriguez Guzman Coding Diagnoses COVID U07.1 Acute hypoxemic respiratory failure J96.01 Sepsis A41.9 Anxiety F41.9 Osteoporosis M81.0 Asthma J45.909 Scoliosis M41.9 Microcytic anemia D50.9 Bronchiectasis J47.9 Restrictive lung disease due to kyphoscoliosis J98.4; M41.9 DVT prophylaxis Z29.9 Murmur R01.1
== END 2023-03-11 14:53 | disposition home or self-care (01) | DRG 871 ==
LOC: ED 17:32 → 2S 21:39 → SUATTDRO 21:39 → 2S 22:21